=== PATIENT | male | born 1935 | race Caucasian/White ===

== ENCOUNTER 2017-02-15 08:24 | Day surgery (SDC) | payer MEDICARE, OTHER, SELFPAY ==
[2017-02-15 08:57] VITALS: BP 128/64; PULSE 75; RESP 18; TEMP 37.3; O2SAT 95; BMI 30.7
[2017-02-15 09:23] VITALS: O2SAT 98
--- NOTE | 2017-02-15 09:30 | HMH.SCOPE ---
- Procedure: Date/Time of Procedure:: 02/15/17 09:30 Procedure Performed:: Esophagogastroduodenoscopy with biopsies Indications:: Patient is an 81-year-old white male who had undergone an emergent upper endoscopy for esophageal food impaction on 01/15/17. He does have a history of transient food impaction. He also required upper endoscopy March 2014 and had follow-up outpatient upper endoscopy 1 month later with dilatation. Plan was made for follow-up endoscopy with possible dilatation. Performing Provider:: Eloy Vallecillo MD Referring Provider:: González Flores MD Sedation:: Propofol Procedure:: Consent was obtained and patient was taken to endoscopy procedure room. Adequate intravenous sedation was achieved with anesthesia titration of propofol. Olympus endoscope was inserted via the oropharynx. Esophagus appeared normal. There is no evidence of any significant appreciable distal esophageal stricture. However, he was noted to have a rather large sliding hiatal hernia. Retroflexion confirmed this. Stomach appeared unremarkable. Pylorus was normal and endoscope was advanced into the duodenal sweep which was unremarkable. Gastric antral mucosal biopsies obtained for CLOtest for H. pylori. Stomach was desufflated and the scope was withdrawn. Findings:: Hiatal hernia Impressions:: Hiatal hernia Recommendations:: Continue proton pump inhibitors. Treat H. pylori if positive. Would recommend avoidance of solid meat and bread products unless semi-pur?ed. Complications:: None Estimated blood obtained (mL): 1
[2017-02-15 09:37] VITALS: BP 91/57; PULSE 73; RESP 18; TEMP 37; O2SAT 93
--- NOTE | 2017-02-15 09:47 | HMH.ANESCL ---
[facility] Anesthesia Checklist - Airway Assessment C-Spine Mobility Assessed: Yes (MP2) TMJ Mobility Assessed: Yes Dentition: Poor Dentition - Neurological Assessment Level of Consciousness: Awake, Alert - Anesthesia Plan Anesthesia Risk discussed: Yes Anesthesia Plan: Verified ASA Class: III Anesthesia Type: MAC [facility] Anesthesia HX Medical History: Reports:: Gastroesophageal Reflux Disease, Hypertension, Myocardial Infarction Denies:: Diabetes Mellitus Type 1, Diabetes Mellitus Type 2, Seizures Comment: HX CVA ~10 yrs ago Other Surgeries: No: Pacemaker Comment: EGD
--- NOTE | 2017-02-15 09:50 | P.PN_ITS ---
[facility] Anesthesia Checklist - Airway Assessment C-Spine Mobility Assessed: Yes (MP2) TMJ Mobility Assessed: Yes Dentition: Poor Dentition - Neurological Assessment Level of Consciousness: Awake, Alert - Anesthesia Plan Anesthesia Risk discussed: Yes Anesthesia Plan: Verified ASA Class: III Anesthesia Type: MAC [facility] Anesthesia HX Medical History: Reports:: Gastroesophageal Reflux Disease, Hypertension, Myocardial Infarction Denies:: Diabetes Mellitus Type 1, Diabetes Mellitus Type 2, Seizures Comment: HX CVA ~10 yrs ago Other Surgeries: No: Pacemaker Comment: EGD
[2017-02-15 09:52] VITALS: BP 111/66; PULSE 72; RESP 18; O2SAT 94
[2017-02-15 10:00] VITALS: BP 118/62; PULSE 71; RESP 18; O2SAT 95
== END 2017-02-15 10:05 | disposition home or self-care (01) ==
PROVIDERS: Family Provider Internal Medicine; PCP Internal Medicine; Visit Provider Surgery
PROC: 0DJ08ZZ Inspection of Upper Intestinal Tract, Via Natural or Artificial Opening Endoscopic (ICD-10-PCS; CPT 43235; principal; 2017-02-15 08:30)
DX: K44.9 Diaphragmatic hernia without obstruction or gangrene (principal); R13.10 Dysphagia, unspecified
CPT/HCPCS: 43235; 87339

== ENCOUNTER → 2017-10-31 18:55 | Outpatient (REF) | payer MEDICARE, SELFPAY ==
[2017-10-31 19:30] LABS: Basophils # 0.1 K/mm3 (0-0.2); Basophils % 0.8 % (0.1-2.0); Eosinophils # 0.3 K/mm3 (0.0-0.4); Eosinophils % 3.9 % (0.1-12.0); Hematocrit 42.2 % (42.0-52.0); Hemoglobin 14.1 g/dL (14.1-18.0); Lymphocytes % 22.6 K/mm3 (10-50); Mean Corpuscular HGB Conc 33.5 g/dL (31.8-35.4); Mean Corpuscular Hemoglobin 32.4 pg (27.0-31.2); Mean Corpuscular Volume 96.8 fl (80-94); Mean Platelet Volume 8.1 fl (7.4-10.4); Monocytes # 0.8 K/mm3 (0.1-1.0); Monocytes % 8.5 % (1.7-9.3); Neutrophils # 5.7 K/mm3 (1.8-7.8); Neutrophils % 64.3 % (37.0-80.0); Platelet Count 357 K/mm3 (142-424); Red Blood Count 4.36 M/mm3 (4.60-6.20); Red Cell Distribution Width 14.1 % (11.5-17.5); White Blood Count 8.8 K/mm3 (4.8-10.8)
[2017-10-31 20:24] LABS: Alanine Aminotransferase 30 U/L (12-78); Albumin Level 3.7 gm/dL (3.4-5.0); Albumin/Globulin Ratio 1.1 (1.1-1.8); Alkaline Phosphatase 78 U/L (46-116); Anion Gap 12.7 mEq/L (5-15); Aspartate Amino Transferase 20 U/L (15-37); Bilirubin,Total 0.7 mg/dL (0.2-1.0); Blood Urea Nitrogen 23 mg/dL (7-18); Calcium 8.5 mg/dL (8.5-10.1); Carbon Dioxide 30 mmol/L (21.0-32.0); Chloride 103 mmol/L (98-107); Chol/HDL Ratio 3.7 (1-3.5); Cholesterol 125 mg/dL (140-200); Creatinine,Serum 1.23 mg/dL (0.70-1.30); Estimated Glomerular Filt Rate 56 ml/min (>60); GFR (African American) 68 ML/MIN (>60); Globulin 3.4 gm/dl (1.3-3.2); Glucose 91 mg/dL (74-106); HDL Cholesterol 34 mg/dL (27-67); LDL Cholesterol 38 mg/dL (0-130); Potassium 4.7 mmoL/L (3.5-5.1); Prostate Specific Ag Screen 0.4 ng/mL (0.0-4.0); Sodium 141 mmol/L (136-145); Total Protein,Serum 7.1 gm/dL (6.4-8.2); Triglycerides 265 mg/dL (30-200); VLDL Cholesterol 53 mg/dL (0-40)
== END ==
LOC: LAB 18:55
PROVIDERS: Visit Provider Internal Medicine
DX: I10 Essential (primary) hypertension (principal); I25.10 Atherosclerotic heart disease of native coronary artery without angina pectoris; I25.2 Old myocardial infarction; I69.351 Hemiplegia and hemiparesis following cerebral infarction affecting right dominant side; E78.5 Hyperlipidemia, unspecified; D64.9 Anemia, unspecified; R39.198 Other difficulties with micturition; Z12.5 Encounter for screening for malignant neoplasm of prostate
CPT/HCPCS: 80053; 80061; 85025; G0103

== ENCOUNTER → 2017-12-19 11:34 | Outpatient (CLI) | payer MEDICARE, OTHER, SELFPAY ==
--- NOTE | 2017-12-19 11:40 | XR_ITS ---
XR chest 2V HISTORY: ITS.REASON: PLEURISY ON LEFT SIDE, COUGH ORDERING PHYSICIAN: González Flores PATIENT AGE: 82 years COMPARISON: 01/15/2017 FINDINGS: The cardiomediastinal silhouette and pulmonary vascularity are within normal limits. The lungs are clear without infiltrates, suspicious nodules, or pleural effusions. There are degenerative changes in the thoracic spine. IMPRESSION: No change with no acute finding
== END ==
PROVIDERS: PCP Internal Medicine; Visit Provider Internal Medicine
DX: R05 Cough (principal); R09.1 Pleurisy
CPT/HCPCS: 71046

== ENCOUNTER 2021-02-06 00:14 | Observation (INO) | payer MEDICARE, OTHER, SELFPAY ==
[2021-02-06] VITALS (11 sets, daily range): BP systolic 131–159; BP diastolic 44–102; PULSE 57–80; RESP 16–18; TEMP 36.6–37; O2SAT 93–97; BMI 30.1; BMI 28.2
--- NOTE | 2021-02-06 00:45 | CT_ITS ---
PROCEDURE INFORMATION: Exam: CT Abdomen And Pelvis With Contrast Exam date and time: 02/06/2021 12:45 AM Age: 85 years old Clinical indication: Abdominal pain; Additional info: Abd pain, nausea TECHNIQUE: Imaging protocol: Computed tomography of the abdomen and pelvis with contrast. Radiation optimization: All CT scans at this facility use at least one of these dose optimization techniques: automated exposure control; mA and/or kV adjustment per patient size (includes targeted exams where dose is matched to clinical indication); or iterative reconstruction. Contrast material: ISOVUE; Contrast volume: 75 ml; Contrast route: IV; COMPARISON: ABDPELW CT ABD PELVIS W/ CONTRAST 05/06/2015 8:09 PM FINDINGS: Lungs: Dependent bilateral lung base opacities favor atelectasis. Liver: Multiple calcific densities of the liver are likely related to prior granulomatous process. There is diffuse hypoattenuation of the liver compatible with mild hepatic steatosis. Gallbladder and bile ducts: Hyperattenuating material dependently layering within the gallbladder fossa compatible with biliary sludge. Pancreas: Normal. No ductal dilation. Spleen: Multiple calcific densities of the spleen are likely related to prior granulomatous process. Adrenal glands: Normal. No mass. Kidneys and ureters: Bosniak 1 cyst of the right inferior renal pole measures 1.7 cm in diameter. No follow-up recommended. Stomach and bowel: Large hiatal hernia with significant portion of the gastric body located at the lower mediastinum. Appendix: No evidence of appendicitis. Intraperitoneal space: Unremarkable. No free air. No significant fluid collection. Vasculature: Moderate calcific atherosclerotic disease of the abdominal aorta without aneurysmal dilatation is present. Lymph nodes: Unremarkable. No enlarged lymph nodes. Urinary bladder: See Reproductive finding. Reproductive: The prostate is enlarged with dystrophic calcifications, and indents upon the base of the bladder with irregular contours. Consider urology evaluation on a nonurgent basis. Bones/joints: Moderate loss of intervertebral disc space with degenerative changes at T12 through L5. Soft tissues: Normal. Other findings: The; Motion artifacts slightly limits sensitivity and specificity of the examination. IMPRESSION: 1. The prostate is enlarged with dystrophic calcifications, and indents upon the base of the bladder with irregular contours. Consider urology evaluation on a nonurgent basis. 2. Large hiatal hernia with significant portion of the gastric body located at the lower mediastinum. COMMENTS: Consistent with the [place] [employer]'s Incidental Findings Committee white paper (J Am Debbie Radiol 2018): Any incidental renal lesion less than 1 cm or classified as too small to characterize, or any incidental cystic renal lesion characterized as simple-appearing, is likely benign. No follow-up imaging is recommended for these lesions per consensus recommendations based on imaging criteria.
--- NOTE | 2021-02-06 01:06 | XR_ITS ---
PROCEDURE INFORMATION: Exam: XR Chest Exam date and time: 02/06/2021 1:06 AM Age: 85 years old Clinical indication: Other: Epigastric; Patient HX: Denies chest pain or SOA; Additional info: Epigastric pain TECHNIQUE: Imaging protocol: XR of the chest. Views: 2 views. COMPARISON: CR CXR2V XR chest 2V 12/19/2017 11:54 AM FINDINGS: Lungs: Unremarkable. No consolidation. Pleural spaces: Unremarkable. No pleural effusion. No pneumothorax. Heart/Mediastinum: Large hiatal hernia present. 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 Bones/joints: Unremarkable. IMPRESSION: No acute findings.
--- NOTE | 2021-02-06 01:10 | HMH.EDNVD ---
ED Disposition Clinical Impression: Hiatal hernia with GERD Abdominal pain Qualifiers: Abdominal location: epigastric Qualified Code(s): R10.13 - Epigastric pain UTI (urinary tract infection) Qualifiers: Urinary tract infection type: site unspecified Hematuria presence: without hematuria Qualified Code(s): N39.0 - Urinary tract infection, site not specified Disposition: Admitted As Inpatient Condition on Discharge: Good - Critical Care Critical Care Time: No Attestation: On 02/06/21, the high probability of a clinically significant, sudden or life threatening deterioration of the following system(s) required my full and direct attention, intervention and personal management. The time I documented below is in addition to time spent performing reported procedures but includes the following listed in this critical care notation. Medical Decision Making - Medical Records Medical records reviewed: Yes: I reviewed the patient's medical records. - Hunter Inquiry Pt receiving controlled substance: No Vital Signs: 02/06/21 00:15 02/06/21 00:30 02/06/21 01:00 Temperature 97.8 F Temperature Source Oral Pulse Rate 57 L 60 Respiratory Rate 16 Blood Pressure 155/72 H 145/67 H Blood Pressure [Right Arm] 155/72 H Blood Pressure Mean 99 93 Blood Pressure Mean [Right Arm] 99 02 Sat by Pulse Oximetry 97 93 L 94 L Oxygen Delivery Method Room Air 02/06/21 01:31 02/06/21 02:01 02/06/21 02:31 Temperature Temperature Source Pulse Rate 60 68 65 Respiratory Rate Blood Pressure 145/102 H 159/68 H 140/44 L Blood Pressure [Right Arm] Blood Pressure Mean 113 84 76 Blood Pressure Mean [Right Arm] 02 Sat by Pulse Oximetry 96 96 94 L Oxygen Delivery Method 02/06/21 03:00 Temperature Temperature Source Pulse Rate 60 Respiratory Rate Blood Pressure 138/52 L Blood Pressure [Right Arm] Blood Pressure Mean 72 Blood Pressure Mean [Right Arm] 02 Sat by Pulse Oximetry 94 L Oxygen Delivery Method - Lab Data Lab results reviewed: Yes: I reviewed the patient's lab results. Lab Results 02/06/21 00:42: WBC 12.0 H, RBC 4.36 L, Hgb 13.9 L, Hct 43.1, MCV 98.9 H, MCH 31.9 H, MCHC 32.2, RDW 13.4, Plt Count 282, MPV 9.0, Neut % (Auto) 82.4 H, Lymph % (Auto) 11.7, [place] % (Auto) 4.2, Eos % (Auto) 1.1, Baso % (Auto) 0.6, Neut # (Auto) 9.9 H, Lymph # (Auto) 1.4, [place] # (Auto) 0.5, Eos # (Auto) 0.1, Baso # (Auto) 0.1 02/06/21 00:42: Sodium 137, Potassium 4.0, Chloride 99, Carbon Dioxide 30, Anion Gap 12.0, BUN 28 H, Creatinine 1.00, Estimated Creat Clear 67, Estimated GFR 71, Est GFR ( Amer) 86, Glucose 173 H, Calcium 8.9, Total Bilirubin 0.7, AST 30, ALT 21, Alkaline Phosphatase 92, Total Protein 7.3, Albumin 4.1, Globulin 3.2, Albumin/Globulin Ratio 1.3, Amylase 155 H, Lipase 70 02/06/21 00:42: ESR 28 H 02/06/21 00:42: C-Reactive Protein 21.9 H, Procalcitonin 0.108 02/06/21 01:11: Urine Color Yellow, Urine Appearance Clear, Urine pH 5.0, Ur Specific [place] >= 1.030, Urine Protein Negative, Urine Glucose (UA) Negative, Urine Ketones Negative, Urine Blood Trace-i, Urine Nitrate Negative, Urine Bilirubin Negative, Urine Urobilinogen 0.2, Ur Leukocyte Esterase 1+ A, Urine RBC 3-5, Urine WBC 5-10, Urine Bacteria 2+, Urine Mucus 1+ 02/06/21 01:22: SARS-CoV-2 (PCR) Not detected, Influenza A Untype (PCR) Not detected, Influenza Type B (PCR) Not detected Result diagrams: 02/06/21 00:42 02/06/21 00:42 Orders (Tests/Meds): ED MEDICATIONS Generic Name Dose Route Start Last Admin Trade Name Freq PRN Reason Stop Dose Admin Sodium Chloride 1,000 mls @ 999 mls/hr 02/06/21 01:45 02/06/21 01:42 Sod Chlor 0.9% 1000ml Bag IV 02/06/21 02:45 999 mls/hr .Q1H1M INA Administration Ceftriaxone Sodium 1 gm/ 50 mls @ 100 mls/hr 02/06/21 03:15 02/06/21 03:27 Sodium Chloride IV 02/20/21 03:14 100 mls/hr Q24H INA Administration Sodium Chloride 8 ml 02/06/21 03:10 Sodium Chloride 0.9%
[2021-02-06 01:14] LABS: Microscopic, Urine URINE MICROSCOPIC (MICROSCOPIC)
[2021-02-06 01:16] LABS: Alanine Aminotransferase 21 U/L (12-78); Albumin Level 4.1 g/dl (3.5-5.0); Albumin/Globulin Ratio 1.3 (1.1-1.8); Alkaline Phosphatase 92 U/L (38-126); Amylase 155 U/L (30-110); Aspartate Amino Transferase 30 U/L (17-59); Bilirubin,Total 0.7 mg/dl (0.2-1.3); Blood Urea Nitrogen 28 mg/dl (9-20); Calcium 8.9 mg/dl (8.4-10.2); Carbon Dioxide 30 mmol/L (22.0-30.0); Chloride 99 mmol/L (98-107); Creatinine Clearance Estimated 67 mL/min (50-200); Estimated Glomerular Filt Rate 71 ml/min (>60); GFR (African American) 86 ML/MIN (>60); Globulin 3.2 g/dL (1.3-3.2); Glucose 173 mg/dl (74-100); Lipase 70 U/L (23-300); Sodium 137 mmol/L (136-145); Total Protein,Serum 7.3 g/dl (6.3-8.2)
[2021-02-06 01:18] LABS: Appearance,Urine CLEAR (Clear); Bilirubin,Urine Negative (Negative); Blood, Urine TRACE-I (Negative); Color,Urine YELLOW (Yellow); Glucose,Urine (UA) Negative (Negative); Ketones,Urine Negative (Negative); Leukocyte Esterase,Urine 1+ (Negative); Nitrate,Urine Negative (Negative); Protein,Urine Negative (Negative); Specific Gravity, Urine >= 1.030 (1.005-1.030); Urobilinogen,Urine 0.2 EU/dl (0.2)
[2021-02-06 01:20] LABS: Basophils # 0.1 K/mm3 (0-0.2); Basophils % 0.6 % (0.1-2.0); Eosinophils # 0.1 K/mm3 (0.0-0.4); Eosinophils % 1.1 % (0.1-12.0); Hematocrit 43.1 % (42.0-52.0); Hemoglobin 13.9 g/dL (14.1-18.0); Lymphocytes # 1.4 K/mm3 (0.7-4.5); Lymphocytes % 11.7 % (10-50); Mean Corpuscular HGB Conc 32.2 g/dL (31.8-35.4); Mean Corpuscular Hemoglobin 31.9 pg (27.0-31.2); Mean Corpuscular Volume 98.9 fl (80-94); Monocytes # 0.5 K/mm3 (0.1-1.0); Monocytes % 4.2 % (1.7-9.3); Neutrophils # 9.9 K/mm3 (1.8-7.8); Neutrophils % 82.4 % (37.0-80.0); Platelet Count 282 K/mm3 (142-424); Red Blood Count 4.36 M/mm3 (4.60-6.20); Red Cell Distribution Width 13.4 % (11.5-17.5)
[2021-02-06 01:30] LABS: Bacteria,Urine 2+ /lpf; Mucus,Urine 1+ /lpf
[2021-02-06 01:38] LABS: Coronavirus 19, PCR Not Detected (NotDetected); Influenza A, PCR Not Detected (NotDetected); Influenza B, PCR Not Detected (NotDetected)
[2021-02-06 02:05] LABS: C-Reactive Protein 21.9 mg/L (0-4)
[2021-02-06 02:07] LABS: Erythrocyte Sedimentation Rate 28 mm/hr (0-20)
[2021-02-06 02:19] LABS: Procalcitonin 0.108 ng/mL (0.0-2.0)
--- NOTE | 2021-02-06 03:41 | PC.NURSE ---
radha on phone with dr tatum @ this time
--- NOTE | 2021-02-06 04:28 | ECG_ITS ---
APPROVED REPORT Exam: Resting ECG HR:64 bpm ECG Measurements Heart Rate 64 AXES NH 200 P -8 QRSd 76 QRS 49 QT 370 T 98 QTc 381 Conclusion Normal sinus rhythm Nonspecific ST and T wave abnormality Abnormal ECG Electronically signed by : Fredy Carmen MD 02/07/2021 09:47:53
--- NOTE | 2021-02-06 05:16 | PC.NURSE ---
report called to Ellen [id number]
--- NOTE | 2021-02-06 05:26 | PC.NURSE ---
PT ARRIVED TO FLOOR VIA W/C FROM ED W/STAFF @ [id number]
[2021-02-06 05:31] LABS: Troponin I < 0.01 ng/ml (0.00-0.034)
[2021-02-06 05:53] LABS: Troponin I < 0.01 ng/ml (0.00-0.034)
--- NOTE | 2021-02-06 07:35 | HMH.PHAVTE ---
[facility] Pharmacy VTE Monitoring - Patient Demographics Admission date: 02/06/21 Report Date: 02/06/21 Time: 07:35 Allergies/Adverse Reactions: Patient Allergies No Known Allergies Allergy (Unverified 07/17/20 10:43) Height: 1.73 m Weight: 84.504 kg Patient Problems: Current Active Problems Abdominal pain (Acute) Hiatal hernia with GERD (Acute) UTI (urinary tract infection) (Acute) - VTE Risk Labs: VTE Related Lab Results Hgb 13.9 g/dL (14.1-18.0) L 02/06/21 00:42 Hct 43.1 % (42.0-52.0) 02/06/21 00:42 Plt Count 282 K/mm3 (142-424) 02/06/21 00:42 BUN 28 mg/dl (9-20) H 02/06/21 00:42 Creatinine 1.00 mg/dl (0.66-1.25) 02/06/21 00:42 Estimated Creat Clear 67 mL/min (50-200) 02/06/21 00:42 Was VTE Risk Assessment Performed: Yes VTE Score: 2 VTE Risk Level: Very Low Risk Clinical Trial Participant: No - Prophylaxis VTE Prophylaxis Ordered?: Yes Types of VTE Prophylaxis: TEDS Knee High
--- NOTE | 2021-02-06 08:00 | US_ITS ---
PROCEDURE: US GALLBLADDER CLINICAL INDICATION: abd pain The the COMPARISON: No exams were available for comparison FINDINGS: Pancreas: Unremarkable/Not well seen Liver: Unremarkable. There is appropriate direction of blood flow within a non dilated portal vein. Right kidney: Small exophytic right renal cysts at 1 point cm each.. Gallbladder: There are multiple gallstones. No gallbladder wall thickening, pericholecystic fluid, or biliary dilatation is evident. Common bile duct 2 mm. IMPRESSION: Cholelithiasis. Dictated by: Parth Presley MD 02/06/2021 08:41 Parth Presley MD in OV 02/06/2021 08:41
--- NOTE | 2021-02-06 08:56 | HMH.HPDC ---
General - General Admission date:: 02/06/21 Discharge date: 02/06/21 *Admission Date: 02/06/21 *Chief complaint: Abd pain *History of present illness: 85-year-old male who is afflicted with blindness and several other medical problems including a tremor disorder, who has been taking proton pump inhibitors at home, who yesterday ate a Stromboli sandwich from a local restaurant and about 2 hours later began to have intense upper epigastric pain with some nausea but no vomiting. He reports this is his first pain like this over the past 24 hours. Came to the emergency department. ER work-up revealed evidence of very minimal white blood cell count elevation. Other labs were essentially nondiagnostic except for nonfasting hyperglycemia. He was found to have a hiatal hernia on CT scan. Ultrasound showed evidence of gallstones but no thickened gallbladder wall and no evidence of gallbladder ductal dilatation. He was admitted overnight. [facility] History I have reviewed the patient's past medical history: Yes Medical History: Reports:: BPH, Coronary Artery Disease, Gastroesophageal Reflux Disease(GERD), Hyperlipidemia, Hypertension, Myocardial Infarction, Transient Ischemic Attacks (TIA), Urinary Tract Infection Denies:: Cancer, Diabetes Mellitus Type 1, Diabetes Mellitus Type 2, Internal Pacemaker, Lung Disease, MRSA, Seizures *Have you ever received a pneumonia vaccine?: No *Have you received a flu vaccine this season?: Yes Other Medical History: Reports: Arthritis Other Surgeries: Yes: No Previous Surgery, Cardiac Catheterization, Colonoscopy, EGD. No: Pacemaker Amputation: No Fractures: No - *Social History Last grade of school completed: 7th or 8th Smoking Status: Never smoker Alcohol Intake: never Alcohol Intake Frequency:: other Substance Use Type: denies use *Occupational Status:: retired Housing: house Household Members: none *Travel in the last 8 weeks: None Family Hx:: Cancer, Coronary Artery Disease, Diabetes, Hyperlipidemia, Hypertension, Kidney Disease Review of Systems - Review of Systems Review of systems:: pertinent systems reviewed and negative unless documented below - *Neurologic Denies headache(s), Denies seizure-like activity Exam Vital signs and Labs for Last 24 Hours: Temp Pulse Resp BP Pulse Ox 98.3 F 72 16 131/65 93 L 02/06/21 08:00 02/06/21 08:00 02/06/21 08:00 02/06/21 08:00 02/06/21 08:00 Laboratory Results - last 24 hr 02/06/21 00:42: WBC 12.0 H, RBC 4.36 L, Hgb 13.9 L, Hct 43.1, MCV 98.9 H, MCH 31.9 H, MCHC 32.2, RDW 13.4, Plt Count 282, MPV 9.0, Neut % (Auto) 82.4 H, Lymph % (Auto) 11.7, [place] % (Auto) 4.2, Eos % (Auto) 1.1, Baso % (Auto) 0.6, Neut # (Auto) 9.9 H, Lymph # (Auto) 1.4, [place] # (Auto) 0.5, Eos # (Auto) 0.1, Baso # (Auto) 0.1 02/06/21 00:42: Sodium 137, Potassium 4.0, Chloride 99, Carbon Dioxide 30, Anion Gap 12.0, BUN 28 H, Creatinine 1.00, Estimated Creat Clear 67, Estimated GFR 71, Est GFR ( Amer) 86, Glucose 173 H, Calcium 8.9, Total Bilirubin 0.7, AST 30, ALT 21, Alkaline Phosphatase 92, Total Protein 7.3, Albumin 4.1, Globulin 3.2, Albumin/Globulin Ratio 1.3, Amylase 155 H, Lipase 70 02/06/21 00:42: ESR 28 H 02/06/21 00:42: C-Reactive Protein 21.9 H, Procalcitonin 0.108 02/06/21 00:42: Troponin I < 0.01 02/06/21 01:11: Urine Color Yellow, Urine Appearance Clear, Urine pH 5.0, Ur Specific [place] >= 1.030, Urine Protein Negative, Urine Glucose (UA) Negative, Urine Ketones Negative, Urine Blood Trace-i, Urine Nitrate Negative, Urine Bilirubin Negative, Urine Urobilinogen 0.2, Ur Leukocyte Esterase 1+ A, Urine RBC 3-5, Urine WBC 5-10, Urine Bacteria 2+, Urine Mucus 1+ 02/06/21 01:22: SARS-CoV-2 (PCR) Not detected, Influenza A Untype (PCR) Not detected, Influenza Type B (PCR) Not detected 02/06/21 04:52: Troponin I < 0.01 I & O for Last 24 hours: Intake & Output 02/03/21 02/04/21 02/05/21 02/06/21 11:59 11:59 11:59 11:59 Weight 186 lb 4.8 oz - Co
--- NOTE | 2021-02-06 09:25 | HMH.GSCON ---
*Admission Date: 02/06/21 *Reason for consult:: Abdominal pain; gallstones *History of present illness: This is an 85-year-old gentleman who presented to the emergency department overnight with increasing abdominal pain with some associated nausea/vomiting. He has a known history of large hiatal hernia. Occasional dysphagia. Intermittent reflux. The majority of his recent symptoms have been in the epigastric region. A CT scan confirmed herniation; however, also revealed biliary sludge. Follow-up ultrasound confirmed multiple stones. No wall thickening, pericholecystic fluid, or biliary dilatation noted. Surgical service was consulted for evaluation. He states he feel(s) fine now . No current right upper quadrant pain. No current nausea. Review of Systems - Constitutional Denies chills - *Cardiovascular Denies chest pain - *Respiratory Denies cough - *Gastrointestinal Denies abdominal pain, Denies nausea - *Neurologic Denies headache(s), Denies seizure-like activity [facility] History Medical History: Reports:: BPH, Coronary Artery Disease, Gastroesophageal Reflux Disease(GERD), Hyperlipidemia, Hypertension, Myocardial Infarction, Transient Ischemic Attacks (TIA), Urinary Tract Infection Denies:: Cancer, Diabetes Mellitus Type 1, Diabetes Mellitus Type 2, Internal Pacemaker, Lung Disease, MRSA, Seizures *Have you ever received a pneumonia vaccine?: No *Have you received a flu vaccine this season?: Yes Other Medical History: Reports: Arthritis Other Surgeries: Yes: No Previous Surgery, Cardiac Catheterization, Colonoscopy, EGD. No: Pacemaker Amputation: No Fractures: No - *Social History Last grade of school completed: 7th or 8th Smoking Status: Never smoker Alcohol Intake: never Alcohol Intake Frequency:: other Substance Use Type: denies use *Occupational Status:: retired Housing: house Household Members: none *Travel in the last 8 weeks: None Family Hx:: Cancer, Coronary Artery Disease, Diabetes, Hyperlipidemia, Hypertension, Kidney Disease Meds Home Medications Medication Instructions Recorded Confirmed Type Atorvastatin Calcium [Lipitor 10mg 10 mg PO DAILY 02/14/17 02/06/21 History Tablet*] Cholecalciferol (Vitamin D3) 1 ml MC DAILY 02/14/17 02/06/21 History [Vitamin D3] Finasteride [Proscar 5mg Tablet] 5 mg PO DAILY 02/14/17 02/06/21 History Loratadine [Claritin] 10 mg PO DAILY 02/14/17 02/06/21 History Vit C/Vit E/Lutein/Min/Neoga-3 1 each PO DAILY 02/14/17 02/06/21 History [Ocuvite Softgel] hydroCHLOROthiazide [HCTZ 25mg 25 mg PO DAILY 02/14/17 02/06/21 History tab] carvedilol 6.25 mg tablet 6.25 mg PO BID tab 06/10/20 02/06/21 History cholecalciferol (vitamin D3) 25 25 mcg PO DAILY 06/10/20 02/06/21 History mcg (1,000 unit) capsule lisinopril 10 mg tablet 20 mg PO BID tab 06/10/20 02/06/21 History Metoclopramide HCl [Reglan 5mg 5 mg PO ACHS 30 Days #120 tab 02/06/21 Rx Tablet] Pantoprazole Sodium 40 mg PO DAILY #60 02/06/21 02/06/21 Rx Allergies Allergy/AdvReac Type Severity Reaction Status Date / Time No Known Allergies Allergy Unverified 07/17/20 10:43 Exam Vital signs and Labs for Last 24 Hours: Temp Pulse Resp BP Pulse Ox 98.3 F 72 16 131/65 93 L 02/06/21 08:00 02/06/21 08:00 02/06/21 08:00 02/06/21 08:00 02/06/21 08:00 Laboratory Results - last 24 hr 02/06/21 00:42: WBC 12.0 H, RBC 4.36 L, Hgb 13.9 L, Hct 43.1, MCV 98.9 H, MCH 31.9 H, MCHC 32.2, RDW 13.4, Plt Count 282, MPV 9.0, Neut % (Auto) 82.4 H, Lymph % (Auto) 11.7, [place] % (Auto) 4.2, Eos % (Auto) 1.1, Baso % (Auto) 0.6, Neut # (Auto) 9.9 H, Lymph # (Auto) 1.4, [place] # (Auto) 0.5, Eos # (Auto) 0.1, Baso # (Auto) 0.1 02/06/21 00:42: Sodium 137, Potassium 4.0, Chloride 99, Carbon Dioxide 30, Anion Gap 12.0, BUN 28 H, Creatinine 1.00, Estimated Creat Clear 67, Estimated GFR 71, Est GFR ( Amer) 86, Glucose 173 H, Calcium 8.9, Total Bilirubin 0.7, AST 30, ALT 21, Alkaline Phos
--- NOTE | 2021-02-06 09:26 | SW/DCPLANNER ---
The plan is for this patient to discharge home today: patient/family have no further needs at this time.
--- NOTE | 2021-02-06 10:28 | HMH.PHAINT ---
DISCHARGE MEDICATION COUNSELING PROVIDED. DISCUSSED ADDITION OF SHORT-COURSE REGLAN, HOW TO TAKE AND WHAT TO EXPECT. PATIENT ENDORSED NO QUESTIONS AT THIS TIME.
== END 2021-02-06 11:13 | disposition home or self-care (01) ==
LOC: ER 00:23 → 2ND 04:29
PROVIDERS: Admitting Provider Internal Medicine Adolescent Medicine; Emergency Provider Emergency Medicine; PCP Internal Medicine; Visit Provider Internal Medicine Adolescent Medicine
DX: K21.9 Gastro-esophageal reflux disease without esophagitis (principal); I10 Essential (primary) hypertension; Z79.899 Other long term (current) drug therapy; I25.10 Atherosclerotic heart disease of native coronary artery without angina pectoris; R25.1 Tremor, unspecified; K44.9 Diaphragmatic hernia without obstruction or gangrene; Z20.822 Contact with and (suspected) exposure to COVID-19
CPT/HCPCS: G0378; 71046; 74177; 76705; 80053; 81001; 82150; 83690; 84145; 84484; 85025; 85651; 86140; 87086; 93005; 99284; C9803; J2405; Q9967; U0003; U0005

== ENCOUNTER → 2022-09-17 15:26 | Outpatient (CLI) | payer MEDICARE, OTHER, SELFPAY ==
[2022-09-17 16:11] LABS: Basophils % 0.4 % (0.1-2.0); Eosinophils # 0.2 K/mm3 (0.0-0.4); Eosinophils % 1.7 % (0.1-12.0); Hemoglobin 13.4 g/dL (14.1-18.0); Lymphocytes # 1.9 K/mm3 (0.7-4.5); Lymphocytes % 20.4 % (10-50); Mean Corpuscular HGB Conc 32.7 g/dL (31.8-35.4); Mean Corpuscular Hemoglobin 31.1 pg (27.0-31.2); Mean Platelet Volume 9.3 fl (7.4-10.4); Monocytes # 0.7 K/mm3 (0.1-1.0); Monocytes % 7.6 % (1.7-9.3); Neutrophils # 6.5 K/mm3 (1.8-7.8); Neutrophils % 69.8 % (37.0-80.0); Platelet Count 290 K/mm3 (142-424); Red Blood Count 4.31 M/mm3 (4.60-6.20); Red Cell Distribution Width 13.8 % (11.5-17.5); White Blood Count 9.3 K/mm3 (4.8-10.8)
[2022-09-17 16:53] LABS: Alanine Aminotransferase 18 U/L (12-78); Albumin Level 4.1 g/dl (3.5-5.0); Albumin/Globulin Ratio 1.3 (1.1-1.8); Alkaline Phosphatase 83 U/L (38-126); Anion Gap 13.9 mEq/L (5-15); Aspartate Amino Transferase 22 U/L (17-59); Bilirubin,Total 0.8 mg/dl (0.2-1.3); Blood Urea Nitrogen 30 mg/dl (9-20); Calcium 9.1 mg/dl (8.4-10.2); Carbon Dioxide 30 mmol/L (22.0-30.0); Chloride 102 mmol/L (98-107); Chol/HDL Ratio 5.3 (1-3.5); Cholesterol 126 mg/dl (140-200); Estimated Glomerular Filt Rate 63 ml/min (>60); GFR (African American) 76 ML/MIN (>60); Globulin 3.2 g/dL (1.3-3.2); Glucose 95 mg/dl (74-100); HDL Cholesterol 24 mg/dl (40-60); Potassium 4.9 mmoL/L (3.5-5.1); Sodium 141 mmol/L (136-145); Total Protein,Serum 7.3 g/dl (6.3-8.2); Triglycerides 172 mg/dl (30-150); VLDL Cholesterol 34 mg/dL (0-40)
[2022-09-17 17:04] LABS: Direct LDL Cholesterol 60.54 mg/dL (100-129)
[2022-09-17 17:22] LABS: Prostate Specific Ag Screen 0.6 ng/ml (0.0-4.0)
== END ==
PROVIDERS: PCP Internal Medicine; Visit Provider Internal Medicine
DX: I25.10 Atherosclerotic heart disease of native coronary artery without angina pectoris (principal); I25.2 Old myocardial infarction; I10 Essential (primary) hypertension; E78.5 Hyperlipidemia, unspecified; D64.9 Anemia, unspecified; N40.1 Benign prostatic hyperplasia with lower urinary tract symptoms; Z12.5 Encounter for screening for malignant neoplasm of prostate
CPT/HCPCS: 80053; 80061; 85025; G0103

== ENCOUNTER → 2022-12-22 14:32 | Outpatient (CLI) | payer MEDICARE, OTHER, SELFPAY ==
--- NOTE | 2022-12-22 14:37 | XR_ITS ---
FINAL REPORT CLINICAL HISTORY: sciatica FINDINGS: AP, lateral, and oblique views of the lumbar spine were obtained. There is grade 1 anterolisthesis of L4 on L5. There is mild retrolisthesis of L1 on L2. There is no acute fracture. There is multilevel degenerative disc disease. No acute paraspinal abnormality is noted. IMPRESSION: Grade 1 anterior spondylolisthesis. Multilevel degenerative disc disease. Reviewed, Interpreted and Dictated by Vidya Nayak MD Transcribed by Louann Snyder Authenticated and [facility]
--- NOTE | 2022-12-22 14:38 | XR_ITS ---
FINAL REPORT CLINICAL HISTORY: SCIATIC PAIN COMPARISON: None FINDINGS: An AP view of the pelvis and a frog leg views of the right hip were obtained. There is no prior exam for comparison. There is no acute fracture or dislocation. There is degenerative joint disease at the hips bilaterally. Remaining osseous pelvis is within normal limits. Soft tissues are within normal limits. IMPRESSION: No acute osseous abnormality of the right hip. If pain persists, consider MR. Reviewed, Interpreted and Dictated by Vidya Nayak MD Transcribed by Louann Snyder Authenticated and [facility]
== END ==
PROVIDERS: PCP Internal Medicine; Visit Provider Internal Medicine
DX: M54.41 Lumbago with sciatica, right side (principal); W19.XXXS Unspecified fall, sequela
CPT/HCPCS: 72110; 73502

== ENCOUNTER 2023-05-20 14:28 | Inpatient (IN) | payer MEDICARE, OTHER, SELFPAY ==
[2023-05-20] VITALS (9 sets, daily range): BP systolic 103–141; BP diastolic 57–79; PULSE 66–110; RESP 16–20; TEMP 36.6–36.7; O2SAT 95–97; BMI 25.0; BMI 26.0
--- NOTE | 2023-05-20 15:25 | CT_ITS ---
FINAL REPORT CLINICAL HISTORY: fall, struck ea, loc FINDINGS: Axial CT images of the cervical spine were obtained without contrast. Sagittal and coronal reformatted images were also obtained. This study was performed with techniques to keep radiation doses as low as reasonably achievable (ALARA). Individualized dose reduction techniques using automated exposure control or adjustment of mA and/or kV according to the patient's size were employed. There is no evidence of fracture or dislocation. There are moderate degenerative changes with multilevel neural foraminal narrowing. IMPRESSION: Degenerative changes without acute osseous abnormality. Reviewed, Interpreted and Dictated by Eloy Collado III, MD Transcribed by Ann Lind Authenticated and [facility]
--- NOTE | 2023-05-20 15:25 | CT_ITS ---
FINAL REPORT TECHNIQUE: Axial images through the pelvis were performed by computed tomography. Sagittal and coronal reformatted images were obtained and reviewed. This study was performed with techniques to keep radiation doses as low as reasonably achievable (ALARA). Individualized dose reduction techniques using automated exposure control or adjustment of mA and/or kV according to the patient's size were employed. CLINICAL HISTORY: R hip pain after fall FINDINGS: No acute fracture is identified. There are mild degenerative changes of the hips bilaterally. IMPRESSION: Mild degenerative changes without acute bony abnormality. Reviewed, Interpreted and Dictated by Eloy Collado III, MD Transcribed by Ann Lind Authenticated and . [facility]
--- NOTE | 2023-05-20 15:25 | CT_ITS ---
FINAL REPORT TECHNIQUE: Axial CT images were performed from the lung apices through the upper abdomen. Coronal reformats were submitted. This study was performed with techniques to keep radiation doses as low as reasonably achievable (ALARA). Individualized dose reduction techniques using automated exposure control or adjustment of mA and/or kV according to the patient's size were employed. CLINICAL HISTORY: R chest and shoulder pain after fall FINDINGS: There is no axillary adenopathy. There is no hilar or mediastinal mass or adenopathy. Heart size is normal. There is no pericardial or pleural effusion. No suspicious infiltrate or nodule is identified on lung window images. There is mild bibasilar atelectasis or scar. There is a moderate hiatal hernia. There is no pneumothorax. IMPRESSION: Mild bibasilar atelectasis or scar. Reviewed, Interpreted and Dictated by Eloy Collado III, MD Transcribed by Ann Lind Authenticated and . [facility]
--- NOTE | 2023-05-20 15:25 | CT_ITS ---
FINAL REPORT TECHNIQUE: Axial images were performed through the lumbar spine by computed tomography. Sagittal reconstruction images were also performed. This study was performed with techniques to keep radiation doses as low as reasonably achievable, (ALARA). Individualized dose reduction techniques using automated exposure control or adjustment of mA and/or kV according to the patient''s size were employed. CLINICAL HISTORY: fall, L spine pain FINDINGS: There are moderate and severe degenerative changes. No acute fracture is identified. There is mild retrolisthesis of L1 on 2 and L2 on 3. Multilevel vacuum phenomenon is identified. IMPRESSION: Multilevel degenerative changes without acute bony abnormality. Reviewed, Interpreted and Dictated by Eloy Collado III, MD Transcribed by Ann Lind Authenticated and [facility]
--- NOTE | 2023-05-20 15:25 | XR_ITS ---
FINAL REPORT CLINICAL HISTORY: fall, R shoulder pain and bruisiung FINDINGS: Right shoulder Three views were obtained. There is no acute fracture or dislocation. There are moderate degenerative changes. No soft tissue abnormality is identified. IMPRESSION: Moderate degenerative changes without acute bony abnormality. Reviewed, Interpreted and Dictated by Eloy Collado III, MD Transcribed by Ann Lind Authenticated and [facility]
--- NOTE | 2023-05-20 15:25 | CT_ITS ---
FINAL REPORT CLINICAL HISTORY: fall, loc FINDINGS: Axial images of the head were obtained without contrast. Coronal reformatted images were also obtained. This study was performed with techniques to keep radiation doses as low as reasonably achievable (ALARA). Individualized dose reduction techniques using automated exposure control or adjustment of mA and/or kV according to the patient''s size were employed. There is generalized age-appropriate atrophy. Periventricular low-attenuation areas are seen consistent with mild chronic ischemic changes. There is no evidence of intracranial hemorrhage or mass. There is no evidence of acute infarct. There is no evidence of shift of the midline structures. There is right frontal scalp soft tissue swelling. IMPRESSION: Atrophy and mild periventricular chronic ischemic changes. No acute intracranial abnormality identified. Reviewed, Interpreted and Dictated by Eloy Collado III, MD Transcribed by Ann Lind Authenticated and [facility]
--- NOTE | 2023-05-20 15:25 | XR_ITS ---
FINAL REPORT CLINICAL HISTORY: fall, right humerus pain and bruising FINDINGS: Right humerus Two views were obtained. There is no acute fracture or dislocation. There are moderate degenerative changes of the shoulder. No soft tissue abnormality is identified. IMPRESSION: No acute process. Reviewed, Interpreted and Dictated by Eloy Collado III, MD Transcribed by Ann Lind Authenticated and [facility]
--- NOTE | 2023-05-20 15:25 | CT_ITS ---
FINAL REPORT TECHNIQUE: Axial images through the abdomen and pelvis were performed without contrast. This study was performed with techniques to keep radiation doses as low as reasonably achievable, (ALARA). Individualized dose reduction techniques using automated exposure control or adjustment of mA and/or kV according to the patient's size were employed. CLINICAL HISTORY: fall, R hip pain FINDINGS: ABDOMEN: The lung bases are clear. The heart size is normal. Limited images of the liver are unremarkable. Note is made of cholelithiasis. Diffuse vascular calcification is identified. The spleen is normal. No adrenal mass is identified. The aorta is normal in caliber. There is no significant free fluid or adenopathy. There is a probable cyst in the right kidney. There is no evidence of hemoperitoneum. Left inguinal hernia containing fat is identified. There is no nephrolithiasis. There is no hydronephrosis. PELVIS: The appendix is not identified. The urinary bladder is unremarkable. There is no significant free fluid or adenopathy. IMPRESSION: Cholelithiasis. No acute process. Reviewed, Interpreted and Dictated by Eloy Collado III, MD Transcribed by Ann Lind Authenticated and [facility]
--- NOTE | 2023-05-20 15:25 | CT_ITS ---
FINAL REPORT CLINICAL HISTORY: fall, t spine pain FINDINGS: Axial CT images of the thoracic spine were obtained without contrast. Sagittal and coronal reformatted images were also obtained. This study was performed with techniques to keep radiation doses as low as reasonably achievable (ALARA). Individualized dose reduction techniques using automated exposure control or adjustment of mA and/or kV according to the patient''s size were employed. There is no evidence of fracture. There is severe degenerative changes with multilevel anterior fusion. IMPRESSION: Severe degenerative changes without acute bony abnormality. Reviewed, Interpreted and Dictated by Eloy Collado III, MD Transcribed by Ann Lind Authenticated and [facility]
--- NOTE | 2023-05-20 15:33 | ECG_ITS ---
APPROVED REPORT Exam: Resting ECG HR:74 bpm ECG Measurements Heart Rate 74 AXES OR 185 P -35 QRSd 89 QRS 53 QT 320 T 95 QTc 347 Conclusion SINUS RHYTHM Electronically signed by : CONCHITA NIEVES, 05/20/2023 19:27:54
--- NOTE | 2023-05-20 15:38 | PC.NURSE ---
Patient to ct.
--- NOTE | 2023-05-20 15:51 | ED_ITS ---
Discharge Plan Disposition Patient Disposition: Admitted Chief Complaint: Fall Clinical Impressions Clinical Impression: Acute pain of right shoulder, Headache, Rhabdomyolysis, Fall, Generalized weakness Discharge ED Provider: Veto Lutz General Adult HPI General Chief complaint: Fall Stated complaint: fall Time Seen by Provider: 05/20/23 15:01 Mode of Arrival: EMS Source of Information: Patient and EMS Limitations: No Limitations Description of Symptoms (Recalled from ER Triage Doc. by RN): Per EMS patient was found on his bathroom this morning. Complaint of right shoulder pain and visable bruising noted to left forehead. Patient states he does not remember falling and does not know what happened. When asked if the patient knew where he was he stated he thought he was still at home. 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 Patient states that he does not remember falling. Per EMS, patient was found in the bathroom on the ground by family. EMS was called. Patient does not remember the fall. He does state that he is having pain in his right shoulder and in his head. Alert and oriented on arrival, pain in his head is mild, described as a soreness, does not radiate. Same description of pain in the right shoulder. Right shoulder pain is made worse with shoulder abduction. Neurovascularly intact. Patient states that he has ambulated since the event with EMS. Denies chest pain, shortness of breath, nausea or vomiting, new weakness on one side or the other, or any other concerns. Please note that above description of symptoms, in this electronic medical record under categorization of recalled from ER triage doctor by RN are reflective of an initial nursing assessment, however, is not reflective of my full history and physical exam that was personally taken and clarified. Consequentially, this preceding description of symptoms, which may include the patient's categorized chief complaint in the EMR, do not reflect my personal clinical impression, and the ultimate description of history of present illness and patient stated complaints should be deferred to this section of the note. Unless stated otherwise or congruent with this section of the note, additional signs, symptoms, or incongruence should be interpreted as inaccurate with my clinical impression. Related Data Home Medications Medication Instructions Recorded Confirmed atorvastatin 10 mg tablet 10 mg PO DAILY Cholesterol 02/14/17 02/06/21 cholecalciferol (vit D3)(bulk) 1 1 ml MC DAILY Supplement 02/14/17 02/06/21 million unit/gram liquid finasteride 5 mg tablet 5 mg PO DAILY prostate 02/14/17 02/06/21 hydrochlorothiazide 25 mg tablet 25 mg PO DAILY Fluid 02/14/17 02/06/21 loratadine 10 mg capsule 10 mg PO DAILY allergies 02/14/17 02/06/21 vit C,E,zinc,copper-qhyfe7o 250 1 each PO DAILY Supplement 02/14/17 02/06/21 mg-lutein 5 mg-zeaxanthin 1 mg capsule carvedilol 6.25 mg tablet 6.25 mg PO BID Hypertension 06/10/20 02/06/21 cholecalciferol (vitamin D3) 25 25 mcg PO DAILY Supplement 06/10/20 02/06/21 mcg (1,000 unit) capsule lisinopril 10 mg tablet 20 mg PO BID Hypertension 06/10/20 02/06/21 Previous Rx's Medication Instructions Recorded metoclopramide HCl 5 mg tablet 5 mg PO ACHS 30 days #120 tabs 02/06/21 pantoprazole 40 mg tablet,delayed 40 mg PO DAILY stomach ##60 02/06/21 release Allergies Allergy/AdvReac Type Severity Reaction Status Date / Time No Known Allergies Allergy Unverified 07/17/20 10:43 [facility] Disclaimer: The information contained in this section may have been updated after the patient was seen, as this information can be updated by other users. Social History Smoking Status: Unknown if ever smoked alcohol intake: never counseling provided: provider counseling substance use type: denies use current occupational status: retired Travel in the last 8 weeks: None household members: none housing: house caffeine: Yes ROS Obtained: Yes All systems reviewed & no additional complaints except as documented Physical Exam General General appearance: alert and in no apparent distress Head Head exam: normocephalic and other (Superficial bruising overlying left mosque) Eye Eye exam: Present normal appearance and EOMI; Absent PERRL ENT ENT exam: Present mucous membranes dry Neck Neck exam: Present normal inspection, full ROM and trachea midline Chest Chest inspection: Present tenderness (Right superior/lateral chest wall anteriorly) Respiratory Respiratory exam: Present normal lung sounds bilaterally; Absent respiratory distress, wheezes, stridor, accessory muscle use or prolonged expiratory phase Cardiovascular Cardiovascular exam: Present regular rate, normal rhythm and systolic murmur (Right upper sternal border) Abdominal Exam Abdominal exam: Present soft; Absent distention, tenderness, guarding, rebound or rigidity Extremities Exam Extremities exam: Present other (Tenderness and bruising/erythema about right shoulder. Range of motion limited secondary to pain and swelling. Superficial abrasions on left foot. Right hip tender to palpation.); Absent edema Back Exam Back exam: Absent tenderness Neurological Exam Neurological exam: Present alert, oriented X3 and normal gait; Absent CN II-XII intact or motor sensory deficit Skin Skin exam: Present warm and dry; Absent diaphoresis or erythema Medical Decision Making Medical Records Medical records reviewed: Yes I reviewed the patient's medical records. [place] Inquiry Pt receiving controlled substance: No [place] was queried for this patient: No Vital Signs: 05/20/23 14:28 05/20/23 15:30 05/20/23 15:35 Temperature 98.0 F Temperature Source Oral Pulse Rate 70 79 Pulse Rate [Radial] 110 H Respiratory Rate 18 16 17 Blood Pressure 103/63 L 112/62 Blood Pressure [Left Arm] 113/71 Blood Pressure Mean 76 78 Blood Pressure Mean [Left Arm] 85 Blood Pressure Source [Left Arm] Automatic Cuff Blood Pressure Position [Left Arm] Sitting 02 Sat by Pulse Oximetry 95 95 96 Oxygen Delivery Method Room Air Room Air Room Air 05/20/23 16:12 05/20/23 16:30 Temperature Temperature Source Pulse Rate 77 74 Pulse Rate [Radial] Respiratory Rate 20 20 Blood Pressure 119/57 L 124/60 Blood Pressure [Left Arm] Blood Pressure Mean 77 76 Blood Pressure Mean [Left Arm] Blood Pressure Source [Left Arm] Blood Pressure Position [Left Arm] 02 Sat by Pulse Oximetry 96 97 Oxygen Delivery Method Lab Data Lab Results 05/20/23 15:02: WBC 18.9 H, RBC 4.95, Hgb 15.9, Hct 49.4, MCV 99.6 H, MCH 32.1 H , MCHC 32.2, RDW 13.9, Plt Count 278, MPV 9.2, Neut % (Auto) 84.9 H, Lymph % (Auto) 6.9 L, [place] % (Auto) 7.3, Eos % (Auto) 0.3, Baso % (Auto) 0.6, Neut # (Auto) 16.1 H, Lymph # (Auto) 1.3, [place] # (Auto) 1.4 H, Eos # (Auto) 0.1, Baso # (Auto) 0.1, Total Counted 100, Neutrophils % (Manual) 86 H, Lymphocytes % (Manual) 4 L, Monocytes % (Manual) 10 H, Platelet Estimate Normal, Tonny Cells 1+, Sodium 140, Potassium 2.9 L*, Chloride 120 H, Carbon Dioxide 19 L, Anion Gap 3.9 L, BUN 19, Creatinine 0.40 L, Estimated Creat Clear 53, Estimated GFR 203, Est GFR ( Amer) 245, Glucose 87, Calcium 6.1 L, Total Bilirubin 1.2, AST 46, ALT 23, Alkaline Phosphatase 57, Total Creatine Kinase 926 H*, Troponin I 0.05 H, NT-Pro-B Natriuret Pep 1640 H, Total Protein 4.7 L D, Albumin 2.3 L, Globulin 2.4, Albumin/Globulin Ratio 1.0 L 05/20/23 15:02 05/20/23 15:02 Orders (Tests/Meds): ED MEDICATIONS Generic Name Dose Route Start Last Admin Trade Name Freq PRN Reason Stop Dose Admin Acetaminophen 650 mg 05/20/23 17:34 Acetaminophen 325mg Tab PO 06/19/23 17:33 Q4HP PRN Fever or Mild Pain (1-3) Heparin Sodium (Porcine) 5,000 unit 05/20/23 18:00 Heparin Sodium 5,000 Unit/Ml Vial SQ 06/19/23 17:59 Q8H INA Potassium Chloride/Water 100 mls @ 50 mls/hr 05/20/23 16:08 05/20/23 17:44 Potassium Chloride 20meq/100ml Ivpb IV 05/20/23 18:07 50 mls/hr ONCE ONE Administration Lactated Ringer's 1,000 mls @ 75 mls/hr 05/20/23 17:45 Lactated Ringer's 1000 Ml Bag IV 06/19/23 17:44 .[id number] INA Ondansetron HCl 4 mg 05/20/23 17:34 Ondansetron 4mg/2ml Vial IV 06/19/23 17:33 Q8HP PRN Nausea Sodium Chloride 10 ml 05/20/23 17:51 Sodium Chloride 0.9% 10ml Flush Syringe IV 06/19/23 17:50 NEEDED PRN Maintain IV Site Discontinued Medications Generic Name Dose Route Start Last Admin Trade Name Payton PRN Reason Stop Dose Admin Lactated Ringer's 1,000 mls @ 999 mls/hr 05/20/23 15:52 05/20/23 16:17 Lactated Ringer's 1000 Ml Bag IV 05/20/23 16:52 999 mls/hr .Q1H1M ONE Administration Ketorolac Tromethamine 15 mg 05/20/23 15:28 05/20/23 16:17 Ketorolac 30mg/Ml Vial IV 05/20/23 15:29 15 mg ONCE ONE Administration Potassium Chloride 60 meq 05/20/23 16:08 Potassium Chloride 20meq Tab PO 05/20/23 16:09 ONCE ONE ORDERS Category Date Time Status CT abdomen pelvis wo con Stat Cat Scan 05/20/23 15:[address] bony pelvis Stat Cat Scan 05/20/23 15:[address] cervical spine wo con Stat Cat Scan 05/20/23 15:[address] chest wo con Stat Cat Scan 05/20/23 15:[address] head/brain wo con Stat Cat Scan 05/20/23 15:[address] lumbar spine wo con Stat Cat Scan 05/20/23 15:[address] thoracic spine wo con Stat Cat Scan 05/20/23 15:25 Completed Humerus XR right [XR humerus RT] Stat Exams 05/20/23 15:25 Completed Shoulder XR right miminum 2 views [XR shoulder RT min Exams 05/20/23 15:25 Completed 2V] Stat Basic Metabolic Panel AMLAB Lab 05/21/23 06:00 Ordered CK [Creatine Kinase] Stat Lab 05/20/23 15:02 Completed Complete Blood Count Auto Diff AMLAB Lab 05/21/23 06:00 Ordered Complete Blood Count Auto Diff Stat Lab 05/20/23 15:02 Completed Comprehensive Metabolic Panel Stat Lab 05/20/23 15:02 Completed NT Pro Brain Natriuretic Pep. 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 Patient states that he does not remember falling. Per EMS, patient was found in the bathroom on the ground by family. EMS was called. Patient does not remember the fall. He does state that he is having pain in his right shoulder and in his head. Alert and oriented on arrival, pain in his head is mild, described as a soreness, does not radiate. Same description of pain in the right shoulder. Right shoulder pain is made worse with shoulder abduction. Neurovascularly intact. Patient states that he has ambulated since the event with EMS. Denies chest pain, shortness of breath, nausea or vomiting, new weakness on one side or the other, dysuria, hematuria, diarrhea, fevers or chills, or any other concerns. History was obtained via conversation with patient. On arrival, patient hemodynamically stable, alert, oriented x4, appropriate, GCS 15, moving all extremities spontaneously, pupils equal and reactive to light. Full physical exam performed and significant for chronically ill-appearing male no acute distress. He does have bruising about the left side of his head. No neck tenderness. Chest wall tenderness on the right anterior/superior lateral aspect of chest. Tenderness about right shoulder with associated erythema and bruising. Range of motion limited secondary to pain and swelling. Pain made worse with shoulder abduction even on passive and active range of motion. Cardiopulmonary exam with right upper sternal border murmur 2 out of 6. Lungs are clear to auscultation bilaterally. Pulses are equal and symmetric. Patient moving bilateral upper lower extremities spontaneously. Differential includes arrhythmia, ACS, [place], intracranial bleed, cervical spine injury, intrathoracic injury, hip fracture, shoulder fracture, dislocation, metabolic abnormality, among others. Patient was given Toradol 15 mg IV, 1 L fluid bolus for symptomatic management and correction of underlying abnormalities. Workup independently interpreted and significant for nonactionable chemistry. Patient does have leukocytosis 19,000 with neutrophilia. Hypokalemia 2.9, this was repleted with 60 mill equivalents p.o. and 20 mEq IV. Normal kidney function. CK elevated at almost the thousand, troponin 0.05 and BNP mildly elevated at 1640. CT head without acute intracranial hemorrhage. CT of the C, T, L-spine without spinal fracture. CT chest, abdomen pelvis, bony pelvis without acute bony abnormality. See radiology read for full review of final results. Independent interpretation of EKG shows sinus rhythm 74 beats a minute no ST or T wave changes concerning for acute ischemia. HI, QRS, QT intervals within normal limits. [place] normal. On reevaluation, patient resting comfortably in bed. Family updated. Given patient presentation, workup, history, this most likely represents rhabdomyolysis in the setting of generalized weakness, fall without obvious clinically significant traumatic injury. Hospitalist contacted for evaluation for admission and fluids. Because patient high risk for clinical decompensation, deemed appropriate for inpatient admission. Results were relayed to patient who voiced understanding and patient was agreeable to inpatient admission and management. Patient was admitted to the hospital for further definitive management. Critical Care Critical Care Time Critical Care Time: No
[2023-05-20 16:00] LABS: Basophils # 0.1 K/mm3 (0-0.2); Basophils % 0.6 % (0.1-2.0); Eosinophils # 0.1 K/mm3 (0.0-0.4); Eosinophils % 0.3 % (0.1-12.0); Hematocrit 49.4 % (42.0-52.0); Hemoglobin 15.9 g/dL (14.1-18.0); Lymphocytes # 1.3 K/mm3 (0.7-4.5); Lymphocytes % 6.9 % (10-50); Mean Corpuscular HGB Conc 32.2 g/dL (31.8-35.4); Mean Corpuscular Hemoglobin 32.1 pg (27.0-31.2); Mean Corpuscular Volume 99.6 fl (80-94); Mean Platelet Volume 9.2 fl (7.4-10.4); Monocytes # 1.4 K/mm3 (0.1-1.0); Monocytes % 7.3 % (1.7-9.3); Neutrophils # 16.1 K/mm3 (1.8-7.8); Neutrophils % 84.9 % (37.0-80.0); Platelet Count 278 K/mm3 (142-424); Red Blood Count 4.95 M/mm3 (4.60-6.20); Red Cell Distribution Width 13.9 % (11.5-17.5); White Blood Count 18.9 K/mm3 (4.8-10.8)
[2023-05-20 16:02] LABS: Chloride 120 mmol/L (98-107); MANUAL DIFFERENTIAL MANUAL DIFFERENTIAL (MANUAL DIFF); Sodium 140 mmol/L (136-145)
--- NOTE | 2023-05-20 16:04 | PC.NURSE ---
pt returned from radiology
[2023-05-20 16:05] LABS: Alanine Aminotransferase 23 U/L (12-78); Albumin Level 2.3 g/dl (3.5-5.0); Alkaline Phosphatase 57 U/L (38-126); Anion Gap 3.9 mEq/L (5-15); Aspartate Amino Transferase 46 U/L (17-59); Bilirubin,Total 1.2 mg/dl (0.2-1.3); Blood Urea Nitrogen 19 mg/dl (9-20); Carbon Dioxide 19 mmol/L (22.0-30.0); Creatinine Clearance Estimated 53 mL/min (50-200); Estimated Glomerular Filt Rate 203 ml/min (>60); GFR (African American) 245 ML/MIN (>60); Globulin 2.4 g/dL (1.3-3.2); Total Protein,Serum 4.7 g/dl (6.3-8.2)
[2023-05-20 16:06] LABS: Calcium 6.1 mg/dl (8.4-10.2); Glucose 87 mg/dl (74-100)
[2023-05-20 16:07] LABS: Potassium 2.9 mmoL/L (3.5-5.1)
[2023-05-20 16:17] LABS: Creatine Kinase 926 U/L (55-170)
[2023-05-20] MEDS: KETOROLAC 30MG/ML VIAL 15 MG IV (16:17)
[2023-05-20] MEDS: LACTATED RINGERS 1000ML 1,000 ML 999 ML IV (16:17)
[2023-05-20 16:18] LABS: Troponin I 0.05 ng/ml (0.00-0.034)
[2023-05-20 16:26] LABS: NT Pro Brain Natriuretic Pep. 1640 pg/mL (0-450)
[2023-05-20 16:41] LABS: Lymphocytes % 4 % (10-50); Monocytes % 10 % (2-9); Neutrophils % 86 % (42-76); Platelet Estimate Normal; Total Cells Counted 100
[2023-05-20 16:44] LABS: Burr Cells 1+
--- NOTE | 2023-05-20 17:16 | PC.NURSE ---
er at bedside
--- NOTE | 2023-05-20 17:36 | PC.NURSE ---
ON PHONE WITH HOSPITALIST
--- NOTE | 2023-05-20 17:38 | PC.NURSE ---
call made to warehouse distribution specialist for bed placement
[2023-05-20 17:39] LABS: Microscopic, Urine URINE MICROSCOPIC (MICROSCOPIC)
[2023-05-20] MEDS: KCl 20mEq/100ml 100 ML 50 MEQ IV (17:44)
[2023-05-20 17:52] LABS: Appearance,Urine CLEAR (Clear); Bilirubin,Urine Negative (Negative); Blood, Urine 1+ (Negative); Color,Urine YELLOW (Yellow); Glucose,Urine (UA) Negative (Negative); Ketones,Urine TRACE (Negative); Leukocyte Esterase,Urine 1+ (Negative); Nitrate,Urine Negative (Negative); Protein,Urine 2+ (Negative); Specific Gravity, Urine 1.025 (1.005-1.030); Urobilinogen,Urine 0.2 EU/dl (0.2)
--- NOTE | 2023-05-20 18:04 | PC.NURSE ---
pt arrived to floor via stretcher. [id number]
[2023-05-20] MEDS: LACTATED RINGERS 1000ML 1,000 ML 75 ML IV (18:23)
[2023-05-20] MEDS: POTASSIUM CHLORIDE 20MEQ TAB 60 MEQ PO (18:28)
[2023-05-20] MEDS: HEPARIN SODIUM 5,000 UNIT/ML VIAL 5000 UNIT SQ (18:28)
--- NOTE | 2023-05-20 18:30 | PC.NURSE ---
Pt. to the floor and pulled over from stretcher, iv tubing changed and LR AND Potassium started, SQ heparin and PO Potassium given, pt being cleaned up, family now present.
[2023-05-20 18:43] LABS: Bacteria,Urine Trace /lpf
[2023-05-20 19:24] LABS: Troponin I 0.05 ng/ml (0.00-0.034)
--- NOTE | 2023-05-20 19:28 | EXP.HP ---
History of Present Illness *Admission Date: 05/20/23 *Reason for visit:: Rhabdomyolysis *History of present illness: 88 year old male presented to [facility] ED after being found down in his bathroom. 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 Pt states he does not remember falling. He states two days prior he felt dizziness when standing but went away when he sat back down and has not reoccurred since. The pt does not remember the fall or events leading to the fall. His family is at bedside and reports they last seen him at 930 p.m. He was found today by his son in law at noon. The pt reports pain in his right shoulder. He denies any N/V/D, chest pain, or recent illness. He lives alone and ambulates with a walker. When asking about his vision, he is able to see bright lights. On exam he is unable to see anything visually. The ED workup was significant for a leukocytosis of 18.9, hypokalemia of 2.9, CK of 926, BNP of 1640, and troponin of 0.05. His EKG is sinus rhythm without ST elevation or depression. His head CT and Cervical spine CT revealed no trauma, acute abnormalities, or hemorrhage. There is chronic ischemic changes periventricularlly and atrophy. His abdominal/pelvis CT revealed cholelithiasis without acute process. His Thoracic spine, pelvis, and lumbar spine reveal no acute bony abnormalities. His right shoulder and humerus XRAY revealed no acute abnormalities as well. He was given 1L of LR and his potassium was replaced orally and IV. The ED physician consulted the hospitalist team for further medical management. I admitted the pt to the medical floor. He will continue to receive gentle hydration to correct his rhabdomyloysis. On admission exam he is A/O X 4. c/o right shoulder pain. He has bruising to the left side of his forehead, right shoulder, right elbow, and his left foot has skin abrasions. He reports that he has right arm weakness from a prior CVA. I will place a consult for PT/OT. [facility] Disclaimer: The information contained in this section may have been updated after the patient was seen, as this information can be updated by other users. Social History (Updated 05/20/23 @ 18:04 by Abhinav Levi RN) Smoking Status: Unknown if ever smoked alcohol intake: never counseling provided: provider counseling substance use type: denies use current occupational status: retired Travel in the last 8 weeks: None household members: none housing: house caffeine: Yes Review of Systems Review of Systems Review of systems:: pertinent systems reviewed and negative unless documented below Meds Home Medications and Allergies Home Medications Medication Instructions Recorded Confirmed Type atorvastatin 10 mg tablet 10 mg PO DAILY Cholesterol 02/14/17 02/06/21 History cholecalciferol (vit D3)(bulk) 1 1 ml MC DAILY Supplement 02/14/17 02/06/21 History million unit/gram liquid finasteride 5 mg tablet 5 mg PO DAILY prostate 02/14/17 02/06/21 History hydrochlorothiazide 25 mg tablet 25 mg PO DAILY Fluid 02/14/17 02/06/21 History loratadine 10 mg capsule 10 mg PO DAILY allergies 02/14/17 02/06/21 History vit C,E,zinc,copper-becff0s 250 1 each PO DAILY Supplement 02/14/17 02/06/21 History mg-lutein 5 mg-zeaxanthin 1 mg capsule carvedilol 6.25 mg tablet 6.25 mg PO BID Hypertension 06/10/20 02/06/21 History cholecalciferol (vitamin D3) 25 25 mcg PO DAILY Supplement 06/10/20 02/06/21 History mcg (1,000 unit) capsule lisinopril 10 mg tablet 20 mg PO BID Hypertension 06/10/20 02/06/21 History metoclopramide HCl 5 mg tablet 5 mg PO ACHS 30 days #120 tabs 02/06/21 Rx pantoprazole 40 mg tablet,delayed 40 mg PO DAILY stomach ##60 02/06/21 02/06/21 Rx release New Prescriptions to Start Prescriptions: Allergies Allergy/AdvReac Type Severity Reaction Status Date / Time No Known Allergies Allergy Unverified 07/17/20 10:43 Exam Data for Last 24 hours Vital signs and Labs for Last 24 Hours: Temp Pulse Resp BP Pulse Ox O2 Del Method 98.1 F 66 16 141/79 H 95 Room Air 05/20/23 18:02 05/20/23 18:44 05/20/23 18:44 05/20/23 18:44 05/20/23 18:44 05/20/23 18:44 Laboratory Results - last 24 hr 05/20/23 15:02: WBC 18.9 H, RBC 4.95, Hgb 15.9, Hct 49.4, MCV 99.6 H, MCH 32.1 H, MCHC 32.2, RDW 13.9, Plt Count 278, MPV 9.2, Neut % (Auto) 84.9 H, Lymph % (Auto) 6.9 L, [place] % (Auto) 7.3, Eos % (Auto) 0.3, Baso % (Auto) 0.6, Neut # (Auto) 16.1 H, Lymph # (Auto) 1.3, [place] # (Auto) 1.4 H, Eos # (Auto) 0.1, Baso # (Auto) 0.1, Total Counted 100, Neutrophils % (Manual) 86 H, Lymphocytes % (Manual) 4 L, Monocytes % (Manual) 10 H, Platelet Estimate Normal, [place] Cells 1+, Sodium 140, Potassium 2.9 L*, Chloride 120 H, Carbon Dioxide 19 L, Anion Gap 3.9 L, BUN 19, Creatinine 0.40 L, Estimated Creat Clear 53, Estimated GFR 203, Est GFR ( Amer) 245, Glucose 87, Calcium 6.1 L, Total Bilirubin 1.2, AST 46, ALT 23, Alkaline Phosphatase 57, Total Creatine Kinase 926 H*, Troponin I 0.05 H, NT-Pro-B Natriuret Pep 1640 H, Total Protein 4.7 L D, Albumin 2.3 L, Globulin 2.4, Albumin/Globulin Ratio 1.0 L 05/20/23 17:30: Urine Color Yellow, Urine Appearance Clear, Urine pH 6.0, Ur Specific [place] 1.025, Urine Protein 2+, Urine Glucose (UA) Negative, Urine Ketones Trace, Urine Blood 1+, Urine Nitrate Negative, Urine Bilirubin Negative, Urine Urobilinogen 0.2, Ur Leukocyte Esterase 1+ A, Urine RBC 3-5, Urine WBC 10-20, Ur Squamous Epith Cells None, Urine Bacteria Trace 05/20/23 18:50: Troponin I 0.05 H I & O for Last 24 hours: Intake & Output 05/17/23 05/18/23 05/19/23 05/20/23 23:59 23:59 23:59 23:59 Weight 77.763 kg Constitutional Constitutional: no acute distress and chronically ill appearing *Routine HEENT Exam Head: Present normocephalic and other (bruising to left forehead ) Eye: Present PERRL, cataracts and other (DOROTHY -blindness ) ENT: Present mucous membranes dry *Routine Neck Exam Neck: Present supple and full ROM *Routine Respiratory Exam Respiratory: Present CTA bilaterally and symmetric chest movement *Routine Cardiovascular Exam Cardiovascular: Present RRR *Routine Abdominal Exam Abdominal: Present soft and normoactive bowel sounds; Absent tenderness *Routine Rectal Exam Rectal:: deferred *Routine Genitalia Exam Genitalia:: deferred *Routine Extremities Exam Extremities: Present tenderness (right shoulder and right forearm ) and extremity cold to touch (BLE) *Routine Skin Exam Skin: Present erythema (right shoulder and right foramen ) and wounds (left foot abrasions ) *Routine Neurological Exam Neurological: Present alert and oriented X3; Absent vision grossly intact Assessment and Plan *Assessment and plan (1) Generalized weakness: Status: Acute Category: Medical Code(s): R53.1 - Weakness (2) Rhabdomyolysis: Status: Acute Category: Medical Code(s): M62.82 - Rhabdomyolysis (3) Fall: Status: Acute Category: Medical Code(s): W19.XXXA - Unspecified fall, initial encounter (4) Hypokalemia: Status: Acute Category: Medical Code(s): E87.6 - Hypokalemia (5) CVA (cerebral vascular accident): Status: Acute Category: Medical Code(s): I63.9 - Cerebral infarction, unspecified (6) CAD (coronary artery disease): Status: Acute Category: Medical Code(s): I25.10 - Atherosclerotic heart disease of [place] coronary artery without angina pectoris (7) HTN (hypertension): Status: Acute Category: Medical Code(s): I10 - Essential (primary) hypertension (8) HLD (hyperlipidemia): Status: Acute Category: Medical Code(s): E78.5 - Hyperlipidemia, unspecified (9) GERD (gastroesophageal reflux disease): Status: Acute Category: Medical Code(s): K21.9 - Gastro-esophageal reflux disease without esophagitis Plan 88 year old male presented to [facility] ED after being found down in his bathroom. 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 Pt states he does not remember falling. He states two days prior he felt dizziness when standing but went away when he sat back down and has not reoccurred since. The pt does not remember the fall or events leading to the fall. His family is at bedside and reports they last seen him at 930 p.m. He was found today by his son in law at noon. The pt reports pain in his right shoulder. He denies any N/V/D, chest pain, or recent illness. He lives alone and ambulates with a walker. When asking about his vision, he is able to see bright lights. On exam he is unable to see anything visually. The ED workup was significant for a leukocytosis of 18.9, hypokalemia of 2.9, CK of 926, BNP of 1640, and troponin of 0.05. His EKG is sinus rhythm without ST elevation or depression. His head CT and Cervical spine CT revealed no trauma, acute abnormalities, or hemorrhage. There is chronic ischemic changes periventricularlly and atrophy. His abdominal/pelvis CT revealed cholelithiasis without acute process. His Thoracic spine, pelvis, and lumbar spine reveal no acute bony abnormalities. His right shoulder and humerus XRAY revealed no acute abnormalities as well. He was given 1L of LR and his potassium was replaced orally and IV. The ED physician consulted the hospitalist team for further medical management. I admitted the pt to the medical floor. He will continue to receive gentle hydration to correct his rhabdomyloysis. On admission exam he is A/O X 4. c/o right shoulder pain. He has bruising to the left side of his forehead, right shoulder, right elbow, and his left foot has skin abrasions. He reports that he has right arm weakness from a prior CVA. I will place a consult for PT/OT. GENERALIZED WEAKNESS RHABDOMYOLYSIS FALL HYPOKALEMIA -found down in bathroom. Unknown time of down time. -leukocytosis of 18.9, hypokalemia of 2.9, CK of 926, BNP of 1640, and troponin of 0.05 -K replaced oral with 60 meq and 20 meq IV. -Will recheck cbc, bmp, and ck in the morning -continue LR at 75 mL/hr for gentle hydration -PT/ OT evaluation, thank you for the help! -head CT and Cervical spine CT reviewed and revealed no trauma, acute abnormalities, or hemorrhage -His right shoulder and humerus XRAY reviewed revealed no acute abnormalities. Prior right arm weakness for CVA -Wound care to his left foot. Please cleanse and bandage abrasions CVA CAD HTN HLD GERD -awaiting home med req FULL CODE CARDIAC DIET DVT: HEPARIN SQ
[2023-05-20 21:53] LABS: Troponin I 0.06 ng/ml (0.00-0.034)
[2023-05-21] VITALS: BP 120/64; PULSE 62; PULSE 90; RESP 16; TEMP 36.5; O2SAT 95
[2023-05-21] MEDS: HEPARIN SODIUM 5,000 UNIT/ML VIAL 5000 UNIT SQ ×3 (01:51→20:51)
[2023-05-21 04:00] VITALS: BP 123/67; PULSE 60; PULSE 67; RESP 18; TEMP 36.7; BMI 26.2
--- NOTE | 2023-05-21 06:25 | PC.NURSE ---
PATIENT IS ESSENTIALLY BLIND. PLEASANT. A/O X 4. TELE NSR. DENIES PAIN. HAS BRUISED AREAS HIP AND ARMS FROM FALLING AND LYING ON THE FLOOR OF HIS RESTEOOM AT HOME. HAS ABRASION TO TOE,
[2023-05-21 06:59] LABS: Chloride 110 mmol/L (98-107); Potassium 4.2 mmoL/L (3.5-5.1); Sodium 139 mmol/L (136-145)
[2023-05-21 07:00] LABS: Basophils # 0.1 K/mm3 (0-0.2); Eosinophils # 0.1 K/mm3 (0.0-0.4); Hematocrit 41.5 % (42.0-52.0); Lymphocytes # 1.8 K/mm3 (0.7-4.5); Mean Corpuscular HGB Conc 31.9 g/dL (31.8-35.4); Mean Corpuscular Hemoglobin 31.6 pg (27.0-31.2)
[2023-05-21 07:02] LABS: Anion Gap 6.2 mEq/L (5-15); Blood Urea Nitrogen 28 mg/dl (9-20); Calcium 8.6 mg/dl (8.4-10.2); Carbon Dioxide 27 mmol/L (22.0-30.0); Creatine Kinase 662 U/L (55-170); Creatinine Clearance Estimated 56 mL/min (50-200); Estimated Glomerular Filt Rate 79 ml/min (>60); GFR (African American) 96 ML/MIN (>60); Glucose 84 mg/dl (74-100)
[2023-05-21 07:36] LABS: Basophils % 0.5 % (0.1-2.0); Eosinophils % 0.9 % (0.1-12.0); Lymphocytes % 17.4 % (10-50); Mean Corpuscular Volume 99.3 fl (80-94); Mean Platelet Volume 8.2 fl (7.4-10.4); Monocytes # 0.9 K/mm3 (0.1-1.0); Neutrophils # 7.3 K/mm3 (1.8-7.8); Neutrophils % 72.1 % (37.0-80.0); Platelet Count 231 K/mm3 (142-424); Red Blood Count 4.18 M/mm3 (4.60-6.20); Red Cell Distribution Width 14.2 % (11.5-17.5); White Blood Count 10.2 K/mm3 (4.8-10.8)
[2023-05-21 07:39] LABS: Hemoglobin 13.2 g/dL (14.1-18.0)
[2023-05-21 08:00] VITALS: BP 150/65; PULSE 80; PULSE 81; RESP 18; TEMP 36.7; O2SAT 94
[2023-05-21] MEDS: CARVEDILOL 6.25MG TABLET 6.25 MG PO ×2 (08:49→20:52)
[2023-05-21] MEDS: ASCORBIC ACID 500MG TAB 500 MG PO (08:49)
[2023-05-21] MEDS: CHOLECALCIFEROL 1,000 UNITS (25MCG) TABLET 25 MCG PO (08:49)
[2023-05-21] MEDS: FINASTERIDE 5MG TABLET 5 MG PO (08:50)
[2023-05-21] MEDS: LISINOPRIL 20MG TABLET 20 MG PO ×2 (08:50→20:52)
[2023-05-21] MEDS: CEFTRIAXONE 1 GM 1 GM in 0.9 % SODIUM CHLORIDE 50 ML IV (11:30)
--- NOTE | 2023-05-21 11:30 | HMH.PHAINT1 ---
Pharmacy Intervention Comments: MEDICATION RECONCILIATION COMPLETED ON PATIENT USING PATIENT'S PILL PACKS FROM CLINIC [facility]. -MARK CAMPOS, DAWND
[2023-05-21 12:00] VITALS: BP 125/64; PULSE 61; PULSE 70; RESP 18; TEMP 36.6; O2SAT 94
--- NOTE | 2023-05-21 15:39 | P.PN_ITS ---
Subjective *Date: 05/21/23 *Time: 15:39 Interval history: patient was seen and evaluated at the bedside. No reported acute events overnight, denies chest pain, shortness of breath, nausea, vomiting, abdominal pain. Exam Data for Last 24 hours Vital signs and Labs for Last 24 Hours: Temp Pulse Resp BP Pulse Ox O2 Del Method 97.8 F 61 18 125/64 94 L Room Air 05/21/23 12:00 05/21/23 12:00 05/21/23 12:00 05/21/23 12:00 05/21/23 12:00 05/21/23 12:00 Laboratory Results - last 24 hr 05/20/23 15:02: WBC 18.9 H, RBC 4.95, Hgb 15.9, Hct 49.4, MCV 99.6 H, MCH 32.1 H , MCHC 32.2, RDW 13.9, Plt Count 278, MPV 9.2, Neut % (Auto) 84.9 H, Lymph % (Auto) 6.9 L, [place] % (Auto) 7.3, Eos % (Auto) 0.3, Baso % (Auto) 0.6, Neut # (Auto) 16.1 H, Lymph # (Auto) 1.3, [place] # (Auto) 1.4 H, Eos # (Auto) 0.1, Baso # (Auto) 0.1, Total Counted 100, Neutrophils % (Manual) 86 H, Lymphocytes % (Manual) 4 L, Monocytes % (Manual) 10 H, Platelet Estimate Normal, [place] Cells 1+, Sodium 140, Potassium 2.9 L*, Chloride 120 H, Carbon Dioxide 19 L, Anion Gap 3.9 L, BUN 19, Creatinine 0.40 L, Estimated Creat Clear 53, Estimated GFR 203, Est GFR ( Amer) 245, Glucose 87, Calcium 6.1 L, Total Bilirubin 1.2, AST 46, ALT 23, Alkaline Phosphatase 57, Total Creatine Kinase 926 H*, Troponin I 0.05 H, NT-Pro-B Natriuret Pep 1640 H, Total Protein 4.7 L D, Albumin 2.3 L, Globulin 2.4, Albumin/Globulin Ratio 1.0 L 05/20/23 17:30: Urine Color Yellow, Urine Appearance Clear, Urine pH 6.0, Ur Specific [place] 1.025, Urine Protein 2+, Urine Glucose (UA) Negative, Urine Ketones Trace, Urine Blood 1+, Urine Nitrate Negative, Urine Bilirubin Negative, Urine Urobilinogen 0.2, Ur Leukocyte Esterase 1+ A, Urine RBC 3-5, Urine WBC 10- 20, Ur Squamous Epith Cells None, Urine Bacteria Trace 05/20/23 18:50: Troponin I 0.05 H 05/20/23 21:15: Troponin I 0.06 H 05/21/23 06:22: WBC 10.2 D, RBC 4.18 L, Hgb 13.2 L D, Hct 41.5 L, MCV 99.3 H, MCH 31.6 H, MCHC 31.9, RDW 14.2, Plt Count 231, MPV 8.2, Neut % (Auto) 72.1, Lymph % (Auto) 17.4, [place] % (Auto) 9.0, Eos % (Auto) 0.9, Baso % (Auto) 0.5, Neut # (Auto) 7.3, Lymph # (Auto) 1.8, [place] # (Auto) 0.9, Eos # (Auto) 0.1, Baso # (Auto) 0.1, Sodium 139, Potassium 4.2 D, Chloride 110 H, Carbon Dioxide 27, Anion Gap 6.2, BUN 28 H D, Creatinine 0.90 D, Estimated Creat Clear 56, Estimated GFR 79, Est GFR ( Amer) 96 D, Glucose 84, Calcium 8.6, Total Creatine Kinase 662 H* D I & O for Last 24 hours: Intake & Output 05/18/23 05/19/23 05/20/23 05/21/23 23:59 23:59 23:59 23:59 Intake Total 2123 / 2123 Output Total 800 / 800 Balance 1324 / 1324 Weight 77.763 kg 78.613 kg Constitutional Constitutional: no acute distress *Routine HEENT Exam Head: Present normocephalic Eye: Present EOMI and PERRL ENT: Present mucous membranes moist *Routine Neck Exam Neck: Present supple; Absent lymphadenopathy *Routine Respiratory Exam Respiratory: Present CTA bilaterally *Routine Cardiovascular Exam Cardiovascular: Present RRR *Routine Abdominal Exam Abdominal: Present soft and normoactive bowel sounds; Absent tenderness *Routine Extremities Exam Extremities: Absent cyanosis, clubbing or edema *Routine Skin Exam Skin: Present warm; Absent rash *Routine Neurological Exam Neurological: Present alert and oriented X3 Assessment and Plan *Assessment and plan (1) Generalized weakness: Status: Acute Category: Medical Code(s): R53.1 - Weakness (2) Rhabdomyolysis: Status: Acute Category: Medical Code(s): M62.82 - Rhabdomyolysis (3) Fall: Status: Acute Category: Medical Code(s): W19.XXXA - Unspecified fall, initial encounter (4) Hypokalemia: Status: Acute Category: Medical Code(s): E87.6 - Hypokalemia (5) CVA (cerebral vascular accident): Status: Acute Category: Medical Code(s): I63.9 - Cerebral infarction, unspecified (6) CAD (coronary artery disease): Status: Acute Category: Medical Code(s): I25.10 - Atherosclerotic heart disease of [place] coronary artery without angina pectoris (7) HTN (hypertension): Status: Acute Category: Medical Code(s): I10 - Essential (primary) hypertension (8) HLD (hyperlipidemia): Status: Acute Category: Medical Code(s): E78.5 - Hyperlipidemia, unspecified (9) GERD (gastroesophageal reflux disease): Status: Acute Category: Medical Code(s): K21.9 - Gastro-esophageal reflux disease without esophagitis Plan 88 year old male presented to [facility] ED after being found down in his bathroom. 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 Pt states he does not remember falling. He states two days prior he felt dizziness when standing but went away when he sat back down and has not reoccurred since. The pt does not remember the fall or events leading to the fall. His family is at bedside and reports they last seen him at 930 p.m. He was found today by his son in law at noon. The pt reports pain in his right shoulder. He denies any N/V/D, chest pain, or recent illness. He lives alone and ambulates with a walker. When asking about his vision, he is able to see bright lights. On exam he is unable to see anything visually. The ED workup was significant for a leukocytosis of 18.9, hypokalemia of 2.9, CK of 926, BNP of 1640, and troponin of 0.05. His EKG is sinus rhythm without ST elevation or depression. His head CT and Cervical spine CT revealed no trauma, acute abnormalities, or hemorrhage. There is chronic ischemic changes periventricularlly and atrophy. His abdominal/pelvis CT revealed cholelithiasis without acute process. His Thoracic spine, pelvis, and lumbar spine reveal no acute bony abnormalities. His right shoulder and humerus XRAY revealed no acute abnormalities as well. He was given 1L of LR and his potassium was replaced orally and IV. The ED physician consulted the hospitalist team for further medical management. I admitted the pt to the medical floor. He will continue to receive gentle hydration to correct his rhabdomyloysis. On admission exam he is A/O X 4. c/o right shoulder pain. He has bruising to the left side of his forehead, right shoulder, right elbow, and his left foot has skin abrasions. He reports that he has right arm weakness from a prior CVA. I will place a consult for PT/OT. GENERALIZED WEAKNESS RHABDOMYOLYSIS FALL HYPOKALEMIA -found down in bathroom. Unknown time of down time. -leukocytosis of 18.9, hypokalemia of 2.9, CK of 926, BNP of 1640, and troponin of 0.05 -K replaced oral with 60 meq and 20 meq IV. -Will recheck cbc, bmp, and ck in the morning -continue LR at 75 mL/hr for gentle hydration -PT/ OT evaluation, thank you for the help! -head CT and Cervical spine CT reviewed and revealed no trauma, acute abnormalities, or hemorrhage -His right shoulder and humerus XRAY reviewed revealed no acute abnormalities. Prior right arm weakness for CVA -Wound care to his left foot. Please cleanse and bandage abrasions CVA CAD HTN HLD GERD -awaiting home med req FULL CODE CARDIAC DIET DVT: HEPARIN SQ Plan 05/21/2023 - continue IV fluids, consult PT/OT, discussed with daughter at bedside, they are interested in rehab placement
[2023-05-21 16:00] VITALS: BP 134/63; PULSE 58; PULSE 60; RESP 18; TEMP 36.6; O2SAT 96
--- NOTE | 2023-05-21 18:28 | PC.NURSE ---
NO ACUTE CHANGES SINCE PREVIOUS ASSESSMENT. TOLERATING DIET WELL BUT DOES REQUIRE ASSISTANCE WITH MEALS R/T POOR VISUAL ACUITY. HE HAS NOT REQUIRED O2 SUPPORT, PT/OT CAME TO SEE PATIENT TODAY. STANDBY ASSIST R/T POOR VISION.
--- NOTE | 2023-05-21 19:40 | HMH.PTEV ---
Physical Therapy Evaluation Rehab PT IP Evaluation Start: 05/20/23 19:59 Freq: ONCE Status: Active Protocol: Document 05/21/23 19:32 AMIRAH (Rec: 05/21/23 19:39 AMIRAH [id number]) Subjective/History History History 88 year old male presented to [facility] ED after being found down in his bathroom. 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 Pt states he does not remember falling. He states two days prior he felt dizziness when standing but went away when he sat back down and has not reoccurred since. The pt does not remember the fall or events leading to the fall. His family is at bedside and reports they last seen him at 930 p.m. He was found today by his son in law at noon. The pt reports pain in his right shoulder. He denies any N/V/D, chest pain, or recent illness . He lives alone and ambulates with a walker. When asking about his vision, he is able to see bright lights. On exam he is unable to see anything visually. The ED workup was significant for a leukocytosis of 18.9, hypokalemia of 2.9, CK of 926, BNP of 1640, and troponin of 0.05. His EKG is sinus rhythm without ST elevation or depression. His head CT and Cervical spine CT revealed no trauma, acute abnormalities, or hemorrhage. There is chronic ischemic changes periventricularlly and atrophy. His abdominal/pelvis CT revealed cholelithiasis without acute process. His Thoracic spine, pelvis, and lumbar spine reveal no acute bony abnormalities. His right shoulder and humerus XRAY revealed no acute abnormalities as well. He was given 1L of LR and his potassium was replaced orally and IV. The ED physician consulted the hospitalist team for further medical management. Admitted the pt to the medical floor. He will continue to receive gentle hydration to correct his rhabdomyloysis. On admission exam he is A/O X 4. c/o right shoulder pain. He has bruising to the left side of his forehead, right shoulder, right elbow, and his left foot has skin abrasions. He reports that he has right arm weakness from a prior CVA. Subjective Subjective I've been feeling much better since getting the fluids. New diagnosis of cancer in past 12 No months? Rehab PT IP Eval Objective Appearance Patient Behavior Appropriate,Cooperative Patient Orientation Person,Place,Birthday Difficulty following instructions none Speech Pattern Clear,Appropriate Ambulation Patient Able to Ambulate No Balance Ability to Arise Unable Sitting Balance Leans or slides in chair Standing Balance Unsteady Dynamic Sitting Balance Ability Poor Dynamic Standing Balance Ability Poor Transfers Bed Transfer Ability Minimal x 1 (25% assist) Sit to Stand Bed Transfer Ability Moderate x 2 (50% assist) ROM All Extremities PT ROM Status WFL MMT All Extremities PT MMT WFL Rehab PT IP prob,goals,plan Problems Date of Evaluation: 05/21/23 PT IP Problems Bed Mobility,Transfers,Gait, Balance,Self care,Safety Rehab Potential Rehab Potential Fair Plan PT Intervention Plan Bed Mobility,Transfers,Gait, Balance,Self care,Safety, Therapeutic Exercise PT Plan Frequency BID Duration LOS Discharge Goals Bed Transfer Ability Minimal x 1 (25% assist) Sit to Stand Chair Transfer Ability Minimal x 1 (25% assist) Ambulation Assistive Device Rolling Walker Ambulation Distance (feet) 20 Discharge Plan PT Discharge Plan PT suggests that patient would benefit from DC to SNF in order to continue rehab and further monitoring once found medically stable by MD. [place] Complexity Eval Charge Codes 84578 - High Complexity PHYSICIAN CERTIFICATION: I certify the specified therapy services for [place] are required, authorized, and reviewed every 30 days.
[2023-05-21 20:00] VITALS: BP 183/99; PULSE 70; PULSE 75; RESP 22; TEMP 36.7; O2SAT 95
[2023-05-21] MEDS: PANTOPRAZOLE 40MG TABLET 40 MG PO (20:51)
[2023-05-21] MEDS: ATORVASTATIN 10MG TABLET 10 MG PO (20:52)
[2023-05-21] MEDS: LACTATED RINGERS 1000ML 1,000 ML 75 ML IV (21:37)
[2023-05-22] VITALS (8 sets, daily range): BP systolic 150–186; BP diastolic 71–88; PULSE 55–74; RESP 16–20; TEMP 36.6–37.1; O2SAT 95–96; BMI 26.3
[2023-05-22] MEDS: HEPARIN SODIUM 5,000 UNIT/ML VIAL 5000 UNIT SQ ×3 (02:20→18:08)
--- NOTE | 2023-05-22 06:30 | PC.NURSE ---
no acute changes
[2023-05-22] MEDS: CARVEDILOL 6.25MG TABLET 6.25 MG PO ×2 (08:20→21:37)
[2023-05-22] MEDS: FINASTERIDE 5MG TABLET 5 MG PO (08:20)
[2023-05-22] MEDS: LISINOPRIL 20MG TABLET 20 MG PO ×2 (08:20→21:37)
[2023-05-22] MEDS: ASCORBIC ACID 500MG TAB 500 MG PO (08:20)
[2023-05-22] MEDS: CHOLECALCIFEROL 1,000 UNITS (25MCG) TABLET 25 MCG PO (08:20)
[2023-05-22] MEDS: CEFTRIAXONE 1 GM 1 GM in 0.9 % SODIUM CHLORIDE 50 ML IV (10:34)
--- NOTE | 2023-05-22 16:00 | P.PN_ITS ---
Subjective *Date: 05/22/23 *Time: 16:00 Interval history: patient was seen and evaluated at the bedside. No reported acute events overnight, he denied any complains today, denies chest pain, shortness of breath, nausea, vomiting, abdominal pain. Exam Data for Last 24 hours Vital signs and Labs for Last 24 Hours: Temp Pulse Resp BP Pulse Ox O2 Del Method 97.8 F 60 17 150/73 H 96 Room Air 05/22/23 15:41 05/22/23 15:41 05/22/23 15:41 05/22/23 15:41 05/22/23 15:41 05/22/23 15:41 I & O for Last 24 hours: Intake & Output 05/19/23 05/20/23 05/21/23 05/22/23 23:59 23:59 23:59 23:59 Intake Total 2394 / 2464 1778 / 1778 Output Total 1575 / 2075 1495 / 1495 Balance 819 / 389 283 / 283 Weight 77.763 kg 78.613 kg 78.727 kg Constitutional Constitutional: no acute distress *Routine HEENT Exam Head: Present normocephalic Eye: Present EOMI and PERRL ENT: Present mucous membranes moist *Routine Neck Exam Neck: Present supple; Absent lymphadenopathy *Routine Respiratory Exam Respiratory: Present CTA bilaterally *Routine Cardiovascular Exam Cardiovascular: Present RRR *Routine Abdominal Exam Abdominal: Present soft and normoactive bowel sounds; Absent tenderness *Routine Extremities Exam Extremities: Absent cyanosis, clubbing or edema *Routine Skin Exam Skin: Present warm; Absent rash *Routine Neurological Exam Neurological: Present alert and oriented X3 Assessment and Plan *Assessment and plan (1) Generalized weakness: Status: Acute Category: Medical Code(s): R53.1 - Weakness (2) Rhabdomyolysis: Status: Acute Category: Medical Code(s): M62.82 - Rhabdomyolysis (3) Fall: Status: Acute Category: Medical Code(s): W19.XXXA - Unspecified fall, initial encounter (4) Hypokalemia: Status: Acute Category: Medical Code(s): E87.6 - Hypokalemia (5) CVA (cerebral vascular accident): Status: Acute Category: Medical Code(s): I63.9 - Cerebral infarction, unspecified (6) CAD (coronary artery disease): Status: Acute Category: Medical Code(s): I25.10 - Atherosclerotic heart disease of [place] coronary artery without angina pectoris (7) HTN (hypertension): Status: Acute Category: Medical Code(s): I10 - Essential (primary) hypertension (8) HLD (hyperlipidemia): Status: Acute Category: Medical Code(s): E78.5 - Hyperlipidemia, unspecified (9) GERD (gastroesophageal reflux disease): Status: Acute Category: Medical Code(s): K21.9 - Gastro-esophageal reflux disease without esophagitis Plan 88 year old male presented to [facility] ED after being found down in his bathroom. 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 Pt states he does not remember falling. He states two days prior he felt dizziness when standing but went away when he sat back down and has not reoccurred since. The pt does not remember the fall or events leading to the fall. His family is at bedside and reports they last seen him at 930 p.m. He was found today by his son in law at noon. The pt reports pain in his right shoulder. He denies any N/V/D, chest pain, or recent illness. He lives alone and ambulates with a walker. When asking about his vision, he is able to see bright lights. GENERALIZED WEAKNESS RHABDOMYOLYSIS FALL HYPOKALEMIA -found down in bathroom. Unknown time of down time. - DC IV fluids -PT/ OT evaluation, recommend placement for rehab -head CT and Cervical spine CT reviewed and revealed no trauma, acute abnormalities, or hemorrhage -His right shoulder and humerus XRAY reviewed revealed no acute abnormalities. Prior right arm weakness for CVA -Wound care to his left foot. Please cleanse and bandage abrasions CVA CAD HTN HLD GERD -awaiting home med req FULL CODE CARDIAC DIET DVT: HEPARIN SQ PT /OT recommend SNF , consult Care management for discharge placement
[2023-05-22] MEDS: PANTOPRAZOLE 40MG TABLET 40 MG PO (21:37)
[2023-05-22] MEDS: ATORVASTATIN 10MG TABLET 10 MG PO (21:37)
[2023-05-23] VITALS: BP 192/68; PULSE 58; PULSE 60; RESP 20; TEMP 36.7; O2SAT 95
[2023-05-23] MEDS: HEPARIN SODIUM 5,000 UNIT/ML VIAL 5000 UNIT SQ ×2 (01:41→09:30)
[2023-05-23 04:00] VITALS: BP 174/87; PULSE 50; PULSE 57; RESP 18; TEMP 36.4; O2SAT 96; BMI 26.1
--- NOTE | 2023-05-23 05:06 | PC.NURSE ---
Pt is alert and oriented. No complaints throughout the night. Pt independently turned self in bed. Pt uses urinal and bedpan. Bed alarm on. Call light in reach.
[2023-05-23 06:28] LABS: Chloride 105 mmol/L (98-107); Potassium 3.7 mmoL/L (3.5-5.1); Sodium 137 mmol/L (136-145)
[2023-05-23 06:31] LABS: Anion Gap 4.7 mEq/L (5-15); Basophils # 0.1 K/mm3 (0-0.2); Basophils % 0.8 % (0.1-2.0); Blood Urea Nitrogen 17 mg/dl (9-20); Calcium 8.6 mg/dl (8.4-10.2); Carbon Dioxide 31 mmol/L (22.0-30.0); Creatine Kinase 248 U/L (55-170); Creatinine Clearance Estimated 55 mL/min (50-200); Eosinophils # 0.4 K/mm3 (0.0-0.4); Estimated Glomerular Filt Rate 91 ml/min (>60); GFR (African American) 110 ML/MIN (>60); Glucose 99 mg/dl (74-100); Hematocrit 42.4 % (42.0-52.0); Hemoglobin 14.1 g/dL (14.1-18.0); Lymphocytes # 1.9 K/mm3 (0.7-4.5); Lymphocytes % 20.9 % (10-50); Mean Corpuscular HGB Conc 33.2 g/dL (31.8-35.4); Mean Corpuscular Hemoglobin 32.4 pg (27.0-31.2); Mean Corpuscular Volume 97.4 fl (80-94); Mean Platelet Volume 7.9 fl (7.4-10.4); Monocytes # 0.6 K/mm3 (0.1-1.0); Neutrophils # 6.1 K/mm3 (1.8-7.8); Neutrophils % 67.4 % (37.0-80.0); Platelet Count 238 K/mm3 (142-424); Red Blood Count 4.36 M/mm3 (4.60-6.20); Red Cell Distribution Width 14.1 % (11.5-17.5); White Blood Count 9.1 K/mm3 (4.8-10.8)
[2023-05-23 08:00] VITALS: BP 178/79; PULSE 60; RESP 17; TEMP 36.4; O2SAT 93; O2SAT 95
[2023-05-23] MEDS: LISINOPRIL 20MG TABLET 20 MG PO (09:23)
[2023-05-23] MEDS: CHOLECALCIFEROL 1,000 UNITS (25MCG) TABLET 25 MCG PO (09:23)
[2023-05-23] MEDS: CARVEDILOL 6.25MG TABLET 6.25 MG PO (09:23)
[2023-05-23] MEDS: ASCORBIC ACID 500MG TAB 500 MG PO (09:23)
[2023-05-23] MEDS: FINASTERIDE 5MG TABLET 5 MG PO (09:26)
--- NOTE | 2023-05-23 09:33 | SW/DCPLANNER ---
Addendum entered by Val Farias 05/23/23 11:42: Per Avelina she will be onsite to speak w/ patient and family but can offer a bed. I have updated MD. Patient will discharge to [facility] level of care today. Original Note: I spoke w/ this patient regarding plans once medically stable for discharge. PT/OT evaluated patient and recommended SNF level of care. Patient and his daughter are agreeable to short term placement and prefer [facility]. Patient/family are agreeable to [facility] only if [facility] can not accept. Patient information has been faxed to Avelina lau/ Dionte Zapata at this time. I will continue to follow up w/ patient/family, and Dionte Zapata. Discharge date is unknown at this time.
[2023-05-23] MEDS: CEFTRIAXONE 1 GM 1 GM in 0.9 % SODIUM CHLORIDE 50 ML IV (09:59)
--- NOTE | 2023-05-23 11:43 | P.DS_ITS ---
General Admission date:: 05/20/23 Discharge date: 05/23/23 HPI HPI HPI: 88 year old male presented to [facility] ED after being found down in his bathroom. 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 Pt states he does not remember falling. He states two days prior he felt dizziness when standing but went away when he sat back down and has not reoccurred since. The pt does not remember the fall or events leading to the fall. His family is at bedside and reports they last seen him at 930 p.m. He was found today by his son in law at noon. The pt reports pain in his right shoulder. He denies any N/V/D, chest pain, or recent illness. He lives alone and ambulates with a walker. When asking about his vision, he is able to see bright lights. On exam he is unable to see anything visually. The ED workup was significant for a leukocytosis of 18.9, hypokalemia of 2.9, CK of 926, BNP of 1640, and troponin of 0.05. His EKG is sinus rhythm without ST elevation or depression. His head CT and Cervical spine CT revealed no trauma, acute abnormalities, or hemorrhage. There is chronic ischemic changes periventricularlly and atrophy. His abdominal/pelvis CT revealed cholelithiasis without acute process. His Thoracic spine, pelvis, and lumbar spine reveal no acute bony abnormalities. His right shoulder and humerus XRAY revealed no acute abnormalities as well. He was given 1L of LR and his potassium was replaced orally and IV. The ED physician consulted the hospitalist team for further medical management. I admitted the pt to the medical floor. He will continue to receive gentle hydration to correct his rhabdomyloysis. On admission exam he is A/O X 4. c/o right shoulder pain. He has bruising to the left side of his forehead, right shoulder, right elbow, and his left foot has skin abrasions. He reports that he has right arm weakness from a prior CVA. I will place a consult for PT/OT. Hospital Course Hospital Course Hospital Course: Patient was seen and evaluated at the bedside on the day of discharge. Patient wishes to be discharged. All patient questions were answered and patient was given time to ask questions. Patient was discharged in stable condition. Patient understands that she can return to ER in case of any sudden changes in health. Total time spent on DC - 38 mins 88 year old male presented to [facility] ED after being found down in his bathroom. 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 Pt states he does not remember falling. He states two days prior he felt dizziness when standing but went away when he sat back down and has not reoccurred since. The pt does not remember the fall or events leading to the fall. His family is at bedside and reports they last seen him at 930 p.m. He was found today by his son in law at noon. The pt reports pain in his right shoulder. He denies any N/V/D, chest pain, or recent illness. He lives alone and ambulates with a walker. When asking about his vision, he is able to see bright lights. GENERALIZED WEAKNESS needs rehab placement RHABDOMYOLYSIS - resolved FALL HYPOKALEMIA - resolved -PT/ OT evaluation, recommend placement for rehab CVA CAD HTN HLD GERD -awaiting home med req FULL CODE CARDIAC DIET DVT: HEPARIN SQ PT /OT recommend SNF , consult Care management for discharge placement, [facility] Exam Data for Last 24 hours Vital signs and Labs for Last 24 Hours: Temp Pulse Resp BP Pulse Ox O2 Del Method 97.6 F 60 17 178/79 H 95 Room Air 05/23/23 08:00 05/23/23 08:00 05/23/23 08:00 05/23/23 08:00 05/23/23 08:00 05/23/23 08:00 Laboratory Results - last 24 hr 05/23/23 05:45: WBC 9.1, RBC 4.36 L, Hgb 14.1, Hct 42.4, MCV 97.4 H, MCH 32.4 H, MCHC 33.2, RDW 14.1, Plt Count 238, MPV 7.9, Neut % (Auto) 67.4, Lymph % (Auto) 20.9, [place] % (Auto) 7.0, Eos % (Auto) 4.0, Baso % (Auto) 0.8, Neut # (Auto) 6.1, Lymph # (Auto) 1.9, [place] # (Auto) 0.6, Eos # (Auto) 0.4, Baso # (Auto) 0.1, Sodium 137, Potassium 3.7, Chloride 105, Carbon Dioxide 31 H, Anion Gap 4.7 L, BUN 17 D, Creatinine 0.80, Estimated Creat Clear 55, Estimated GFR 91, Est GFR ( Amer) 110, Glucose 99, Calcium 8.6, Total Creatine Kinase 248 H D I & O for Last 24 hours: Intake & Output 05/20/23 05/21/23 05/22/23 05/23/23 23:59 23:59 23:59 23:59 Intake Total 2394 / 2464 2168 / 2168 650 / 650 Output Total 1575 / 2075 1845 / 2045 400 / 400 Balance 819 / 389 323 / 123 250 / 250 Weight 77.763 kg 78.613 kg 78.727 kg 78.273 kg Constitutional Constitutional: no acute distress Comments: he is legally blind *Routine HEENT Exam Head: Present normocephalic Eye: Present EOMI and PERRL ENT: Present mucous membranes moist *Routine Neck Exam Neck: Present supple; Absent lymphadenopathy *Routine Respiratory Exam Respiratory: Present CTA bilaterally *Routine Cardiovascular Exam Cardiovascular: Present RRR *Routine Abdominal Exam Abdominal: Present soft and normoactive bowel sounds; Absent tenderness *Routine Extremities Exam Extremities: Absent cyanosis, clubbing or edema *Routine Skin Exam Skin: Present warm; Absent rash *Routine Neurological Exam Neurological: Present alert and oriented X3 Results Data Completed and Pending Labs on day of discharge: Labs from last 24 hours 05/23/23 05:45 WBC 9.1 RBC 4.36 L Hgb 14.1 Hct 42.4 MCV 97.4 H MCH 32.4 H MCHC 33.2 RDW 14.1 Plt Count 238 MPV 7.9 Neut % (Auto) 67.4 Lymph % (Auto) 20.9 [place] % (Auto) 7.0 Eos % (Auto) 4.0 Baso % (Auto) 0.8 Neut # (Auto) 6.1 Lymph # (Auto) 1.9 [place] # (Auto) 0.6 Eos # (Auto) 0.4 Baso # (Auto) 0.1 Sodium 137 Potassium 3.7 Chloride 105 Carbon Dioxide 31 H Anion Gap 4.7 L BUN 17 D Creatinine 0.80 Estimated Creat Clear 55 Estimated GFR 91 Est GFR ( Amer) 110 Glucose 99 Calcium 8.6 Total Creatine Kinase 248 H D DS: Diagnosis Discharge Diagnosis (1) Generalized weakness: Status: Acute Code(s): R53.1 - Weakness (2) Rhabdomyolysis: Status: Acute Code(s): M62.82 - Rhabdomyolysis (3) Fall: Status: Acute Code(s): W19.XXXA - Unspecified fall, initial encounter (4) Hypokalemia: Status: Acute Code(s): E87.6 - Hypokalemia (5) CVA (cerebral vascular accident): Status: Acute Code(s): I63.9 - Cerebral infarction, unspecified (6) CAD (coronary artery disease): Status: Acute Code(s): I25.10 - Atherosclerotic heart disease of [place] coronary artery without angina pectoris (7) HTN (hypertension): Status: Acute Code(s): I10 - Essential (primary) hypertension (8) HLD (hyperlipidemia): Status: Acute Code(s): E78.5 - Hyperlipidemia, unspecified (9) GERD (gastroesophageal reflux disease): Status: Acute Code(s): K21.9 - Gastro-esophageal reflux disease without esophagitis Meds Home Medications and Allergies Home Medications Medication Instructions Recorded Confirmed Type atorvastatin 10 mg tablet 10 mg PO HS 02/14/17 05/21/23 History finasteride 5 mg tablet 5 mg PO DAILY 02/14/17 05/21/23 History carvedilol 6.25 mg tablet 6.25 mg PO BID 06/10/20 05/21/23 History cholecalciferol (vitamin D3) 25 25 mcg PO DAILY 06/10/20 05/20/23 History mcg (1,000 unit) capsule pantoprazole 40 mg tablet,delayed 40 mg PO DAILY stomach ##60 02/06/21 05/21/23 Rx release ascorbic acid (vitamin C) 500 mg 500 mg PO DAILY 05/20/23 05/21/23 History tablet (Vitamin C) vitamin A-vitamin C-vit E-min 1 tab PO DAILY 05/20/23 05/20/23 History tablet lisinopril 20 mg tablet 40 mg (2 x 20 mg) PO BID High 05/23/23 05/21/23 Rx Blood Pressure 30 days #60 tabs New Prescriptions to Start Prescriptions: Allergies Allergy/AdvReac Type Severity Reaction Status Date / Time No Known Allergies Allergy Unverified 07/17/20 10:43 Discharge Plan Disposition Patient Disposition: Xfer SNF Condition: Good Discharge Order Discharge Orders: Discharge Order (Routine); Ordered 05/23/23 Ordered By: Sabas Shrestha Follow up Plan Follow up with: González Flores MD [Primary Care Provider] - 2 weeks Prescriptions/Medication Reconciliation: Continued cholecalciferol (vitamin D3) 25 mcg (1,000 unit) capsule 25 mcg PO DAILY atorvastatin 10 MG tablet 10 mg PO HS finasteride 5 MG tablet 5 mg PO DAILY carvedilol 6.25 mg tablet 6.25 mg PO BID pantoprazole 40 mg tablet,delayed release (DR/EC) 40 mg PO DAILY Qty: 60 0RF ascorbic acid (vitamin C) [Vitamin C] 500 mg Tablet 500 mg PO DAILY vitamin A-vitamin C-vit E-min Tablet 1 tab PO DAILY Changed lisinopril 20 mg Tablet 40 mg PO BID 30 Days Qty: 60 0RF Problem Reconciliation Problems Reviewed?: Yes Patient Discharge Instructions ACTIVITY: Ambulate as tolerated DIET: continue same diet Patient Instructions: DI for Hypokalemia, DI for Rhabdomyolysis Providers Primary Care Provider: González Flores Admit Provider: Sabas Shrestha Attending Provider: Sabas Shrestha
[2023-05-23 11:45] VITALS: BP 136/81; PULSE 59; RESP 18; TEMP 36.7; O2SAT 93
[2023-05-23 12:12] VITALS: PULSE 60
== END 2023-05-23 14:17 | DRG 565 ==
LOC: ER 16:41 → 2ND 17:56 → ER 18:05 → 2ND 05-21 03:52
PROVIDERS: Admitting Provider Internal Medicine; Emergency Provider Emergency Medicine; PCP Internal Medicine; Visit Provider Internal Medicine
DX: T79.6XXA Traumatic ischemia of muscle, initial encounter (principal); I69.351 Hemiplegia and hemiparesis following cerebral infarction affecting right dominant side; W19.XXXA Unspecified fall, initial encounter; E87.6 Hypokalemia; I25.10 Atherosclerotic heart disease of native coronary artery without angina pectoris; I10 Essential (primary) hypertension; E78.5 Hyperlipidemia, unspecified; K21.9 Gastro-esophageal reflux disease without esophagitis; I69.398 Other sequelae of cerebral infarction; H54.3 Unqualified visual loss, both eyes; S91.302A Unspecified open wound, left foot, initial encounter; X58.XXXA Exposure to other specified factors, initial encounter
CPT/HCPCS: 36415; 70450; 71250; 72125; 72128; 72131; 72192; 73030; 73060; 74176; 80048; 80053; 81001; 82550; 83880; 84484; 85007; 85025; 87086; 93005; 97163; 99285; J0696